=== PATIENT | female | born 1955 | race Caucasian/White ===

== ENCOUNTER 2019-07-09 19:58 | Observation (INO) ==
[2019-07-09] MEDS ORDERED: ALBUT/IPRATROP 3MG/0.5MG NEB 3 ML VIAL INH STA (20:31)
[2019-07-09] MEDS ORDERED: methylPREDNISolone 125 MG/2 ML VIAL IV STA (20:31)
[2019-07-09] MEDS ORDERED: SODIUM CHLORIDE 0.9% 1000ML 1,000 ML IV SCH (20:45)
--- NOTE | 2019-07-09 20:59 | XRay Report ---
XR chest 1V portable CLINICAL HISTORY: Dyspnea dyspnea COMPARISON STUDY: No previous studies for comparison. FINDINGS: Mild cardiac enlargement. Diaphragms are smooth. Mild prominence of the pulmonary vasculatu re. IMPRESSION: Pulmonary vascular congestion. Mild cardiomegaly. ACT 112: Negative or not required by law. The above report was generated using voice recognition software. It may contain grammatical, syntax or spelling errors. Electronically signed by: Trey Leal M.D. 07/09/2019 8:58 PM
[2019-07-09 21:18] LABS: Basophils # (auto) 0.02 K/uL (0-0.2); Basophils % (auto) 0.3 %; Eosinophils # (auto) 0.14 K/uL (0-0.5); Eosinophils % (auto) 2.2 %; Hematocrit (blood only) 43.7 % (37-47); Hemoglobin 15.2 g/dL (12.0-16.0); Lymphocytes # (auto) 2.91 K/uL (1.2-3.4); Lymphocytes % (auto) 46.3 %; Mean Corpuscular Hemoglobin 28.3 pg (25-34); Mean Corpuscular Hgb Conc 34.8 g/dL (32-36); Mean Corpuscular Volume 81.4 fL (80-100); Mean Platelet Volume 9.6 fL (7.4-10.4); Monocytes # (auto) 0.43 K/uL (0.11-0.59); Monocytes % (auto) 6.8 %; Neutrophils # (auto) 2.78 K/uL (1.4-6.5); Neutrophils % (auto) 44.4 %; Platelet Count 161 K/uL (130-400); RDW Coefficient of Variation 14.5 % (11.5-14.5); RDW Standard Deviation 42.5 fL (36.4-46.3); Red Blood Count 5.37 M/uL (4.2-5.4); White Blood Count 6.28 K/uL (4.8-10.8)
[2019-07-09 21:30] LABS: INR 0.9 (0.9-1.1); Partial Thromboplastin Ratio 0.9; Partial Thromboplastin Time 23.7 Seconds (21.0-31.0); Prothrombin Time 9.7 Seconds (9.0-12.0)
[2019-07-09 21:38] LABS: Alanine Aminotransferase 40 U/L (12-78); Albumin Level 2.9 gm/dl (3.4-5.0); Aspartate Aminotransferase 18 U/L (15-37); BUN Creatinine Ratio 17.2 (10-20); Blood Urea Nitrogen 19 mg/dl (7-18); Carbon Dioxide 30 mmol/L (21-32); Chloride 103 mmol/L (98-107); Creatinine Clr Calc Pharmacy 49.8 ml/min; Est GFR (African American) 62.8; Est GFR (Non-African American) 54.2; Glucose 294 mg/dl (70-99); Potassium 3.7 mmol/L (3.5-5.1); Sodium 139 mmol/L (136-145)
[2019-07-09 21:43] LABS: Albumin Globulin Ratio 0.7 (0.9-2); Alkaline Phosphatase 77 U/L (45-117); Bilirubin,Total 0.4 mg/dl (0.2-1); Globulin 4.1 gm/dl (2.5-4.0); NT Pro B Type Natriuretic Pept 149 pg/ml (0-900); Troponin I < 0.015 ng/ml (0-0.045)
[2019-07-09 22:04] LABS: Influenza A virus by PCR Neg for Influ A (Neg); Influenza B virus by PCR Neg for Influ B (Neg)
[2019-07-09] MEDS ORDERED: ALBUTEROL 0.083% NEBU SOLN 3 ML VIAL NEB STA (22:09)
--- NOTE | 2019-07-09 22:57 | Emergency Department Note ---
Entered by Susan Chris acting as a scribe for Zach Christensen DO History of Present Illness General Chief complaint: Cough Stated complaint: BRONCHITIS, COUGHING, SOB Source: patient History of Present Illness Onset (ago): week(s) 3 Location: mouth (cough) Pain Consistency: + other (worsening) Maximum Pain Intensity: 0 Relieved By: not by medication (inhaler and nebulizer) Associated symptoms: + cough, + shortness of breath and + other (a runny nose, sore throat, congestion); no fever/chills The patient is a 63 year old F who presents to the Emergency Room with complaints of a worsening cough that started 3 weeks ago. The patient states that her symptoms started with a runny nose, sore throat, coughing and congestion. She notes that she saw her PCP, 3 weeks ago, and was diagnosed with bronchitis. She adds that her PCP started her on doxycycline and prednisone. She notes that she has been swallowing her mucous and adds that she does not know what color her mucous is. She states that she has not been using an inhaler or nebulizer because it has not been providing her relief. She adds that is addition to her other symptoms, she is currently experiencing shortness of breath. She notes that she has chronic leg swelling. She denies that she is currently experiencing a fever. She states that she has a history of COPD and smoking. Home Medications Home Medications Medication Instructions Recorded Confirmed Type Fenofibrate Tab 0 mg PO DAILY 07/09/19 07/09/19 History albuterol sulfate 2.5 mg INHALATION Q4 PRN 07/09/19 07/09/19 History albuterol sulfate [Ventolin HFA] 2 puff INHALATION Q4 PRN 07/09/19 07/09/19 History aspirin [Aspir-81] 81 mg PO DAILY 07/09/19 07/09/19 History atorvastatin 80 mg PO HS 07/09/19 07/09/19 History bupropion HCl [Wellbutrin SR] 150 mg PO DAILY 07/09/19 07/09/19 History cholecalciferol (vitamin D3) 5,000 unit PO DAILY 07/09/19 07/09/19 History [Vitamin D3] citalopram [Celexa] 4 mg PO BID 07/09/19 07/09/19 History clopidogrel [Plavix] 75 mg PO DAILY 07/09/19 07/09/19 History dulaglutide [Trulicity] 1.5 mg SUBCUT WK 07/09/19 07/09/19 History ezetimibe [Zetia] 10 mg PO DAILY 07/09/19 07/09/19 History fluticasone propion-salmeterol 1 inh INHALATION Q12H 07/09/19 07/09/19 History [Advair Diskus] furosemide [Lasix] 20 mg PO DAILY 07/09/19 07/09/19 History gabapentin [Neurontin] 100 mg PO TID 07/09/19 07/09/19 History hydrocodone-acetaminophen [[place]] 2 tab PO Q6H PRN 07/09/19 07/09/19 History insulin aspart U-100 [Novolog 17 unit SUBCUT TIDM 07/09/19 07/09/19 History U-100 Insulin aspart] insulin detemir U-100 [Levemir 40 unit SUBCUT QPM 07/09/19 07/09/19 History FlexTouch U-100 Insuln] insulin detemir U-100 [Levemir 45 unit SUBCUT QAM 07/09/19 07/09/19 History FlexTouch U-100 Insuln] lisinopril 5 mg PO DAILY 07/09/19 07/09/19 History loratadine [Claritin] 10 mg PO DAILY 07/09/19 07/09/19 History magnesium 30 mg PO DAILY 07/09/19 07/09/19 History metformin 500 mg PO BID 07/09/19 07/09/19 History metoprolol succinate [Toprol XL] 50 mg PO DAILY 07/09/19 07/09/19 History nystatin [Nystop] 1 applic TOPICAL BID 07/09/19 07/09/19 History omeprazole 40 mg PO DAILY 07/09/19 07/09/19 History tiotropium bromide [Spiriva with 1 cap INHALATION DAILY 07/09/19 07/09/19 History HandiHaler] trazodone 150 mg PO HS 07/09/19 07/09/19 History Past Med/Surg History Medical History (Updated 07/09/19 @ 22:57 by Zach Christensen DO) COPD (chronic obstructive pulmonary disease) Family History (Updated 07/09/19 @ 22:42 by Susan Chris) Other No significant family history Social History (Updated 07/09/19 @ 22:42 by Susan Chris) Preferred Language: Greek marital status: Current Living Situation: Spouse Feels Safe at Home: Yes Smoking Status: Former smoker Review of Systems See HPI for pertinent positives & negatives. and A total of 10 systems reviewed and were otherwise negative Physical Exam Vital Signs Vital Signs - 24 hr 07/09/19 20:00 07/09/19 20:44 07/09/19 21:00 Temperature 37.0 C Temperature Source Oral Pulse Rate 126 H Pulse Rate [Apical] 104 H Pulse Rhythm [Apical] Respiratory Rate 22 20 Respiratory Effort / Characteristics Non-Labored Spontaneous Non-Labored Spontaneous Respiratory Depth Normal Blood Pressure 205/77 H Blood Pressure [Right Arm] Blood Pressure Mean 119 Blood Pressure Mean [Right Arm] Pulse Oximetry 92 98 91 Oxygen Delivery Method Room Air Nebulizer Room Air Oxygen Flow Rate 8 Sepsis Recent Fever Within 48 Hours No Sepsis New/Unexplained Change in Mental Status No Sepsis Action Taken by Nursing No Action Required 07/09/19 22:10 07/09/19 22:33 Temperature Temperature Source Pulse Rate Pulse Rate [Apical] 119 H 121 H Pulse Rhythm [Apical] Regular Respiratory Rate 18 20 Respiratory Effort / Characteristics Non-Labored Spontaneous Respiratory Depth Normal Blood Pressure Blood Pressure [Right Arm] 135/80 Blood Pressure Mean Blood Pressure Mean [Right Arm] 98 Pulse Oximetry 93 92 Oxygen Delivery Method Room Air Oxygen Flow Rate Sepsis Recent Fever Within 48 Hours Sepsis New/Unexplained Change in Mental Status Sepsis Action Taken by Nursing GENERAL: sitting up in bed, ill appearing, diaphoretic, persistent cough present, moderate respiratory distress EYE EXAM: normal conjunctiva, PERRL and EOM's grossly intact OROPHARYNX: no exudate, no erythema, lips, buccal mucosa, and tongue normal and mucous membranes are moist NECK: supple, no nuchal rigidity, no adenopathy, non-tender LUNGS: Poor air movement with diffuse wheezing bilaterally. Normal chest wall mechanics HEART: no murmurs, S1 normal and S2 normal ABDOMEN: abdomen soft, non-tender, normo-active bowel sounds, no masses, no rebound or guarding. BACK: Back is symmetrical on inspection and there is no deformity, no midline tenderness, no CVA tenderness. SKIN: no rashes and no bruising UPPER EXTREMITIES: upper extremities are grossly normal. LOWER EXTREMITIES: No pitting edema. Calves equal bilateral. NEURO EXAM: Normal sensorium, cranial nerves II-XII grossly intact, normal speech, no gross weakness of arms, no gross weakness of legs. Course Course ED COURSE: Vital signs were reviewed and showed tachycardia. The patients medical record was reviewed The above diagnostic studies were performed and reviewed. ED treatments and interventions as stated above. 2024: The patient was evaluated in room B5. A complete history and physical examination was performed. 2208: I reviewed the patient's case with Dr. Giles Harper, [facility] Hospitalist. He will evaluate the patient for further management. 2212: Upon reevaluation, the patient is her. I discussed my findings with the patient and she understands and agrees with the treatment plan . Based on the patients age, coexisting illnesses, exam and lab findings the de cision to treat as an inpatient was made. The patient remained stable while under my care. The patient will be evaluated for further management. Administered Medications Discontinued Medications Albuterol (Duoneb) 12 ml INH ONE STA Stop: 07/09/19 20:32 Last Admin: 07/09/19 20:43 Dose: 12 ml Documented by: [id number] Albuterol (Ventolin 0.083% 2.5mg/3ml) 10 mg NEB NOW STA Stop: 07/09/19 22:10 Last Admin: 07/09/19 22:33 Dose: 10 mg Documented by: [id number] Sodium Chloride (Nss 1000ml) 1,000 mls @ 999 mls/hr IV .Q1H1M ADELITA Stop: 07/09/19 21:45 Last Infusion: 07/09/19 22:27 Dose: 0 mls/hr Documented by: [id number] Admin: 07/09/19 21:21 Dose: 999 mls/hr Documented by: [id number] Methylprednisolone (Solumedrol) 60 mg IV NOW STA Stop: 07/09/19 20:32 Last Admin: 07/09/19 21:21 Dose: 60 mg Documented by: [id number] Critical Care Time Critical Care Time: Yes Total Critical Care Time: 35 I have personally spent 35 minutes of critical care time in the direct management of this patient. This includes bedside care, interpretation of diagnostic studies, and testing, discussion with consultants, patient, and family members, and other required patient management activities. This 35 minutes is in excess of all separately billable procedures. Medical Decision Making Differential Diagnosis Differential diagnoses includes but is not limited to pneumonia, bronchitis, COPD/Asthma exacerbation, pneumothorax, pulmonary embolism, congestive heart failure, acute coronary syndrome Medical Records Attestation: I reviewed the patient's medical records. Home Medications Current Medication List: was personally reviewed by me Laboratory Data Attestation: I reviewed the patient's lab results. Result diagrams: 07/09/19 21:08 07/09/19 21:08 Lab Results 07/09/19 07/09/19 07/09/19 Range/Units 21:08 21:08 21:08 WBC 6.28 (4.8-10.8) K/uL RBC 5.37 (4.2-5.4) M/uL Hgb 15.2 (12.0-16.0) g/dL Hct 43.7 (37-47) % MCV 81.4 (80-100) fL MCH 28.3 (25-34) pg MCHC 34.8 (32-36) g/dL RDW Std Deviation 42.5 (36.4-46.3) fL RDW Coeff of Carole 14.5 (11.5-14.5) % Plt Count 161 (130-400) K/uL MPV 9.6 (7.4-10.4) fL Immature Gran % (Auto) 0.0 % Neut % (Auto) 44.4 % Lymph % (Auto) 46.3 % [place] % (Auto) 6.8 % Eos % (Auto) 2.2 % Baso % (Auto) 0.3 % Immature Gran # (Auto) 0.00 (0.00-0.02) K/uL Neut # (Auto) 2.78 (1.4-6.5) K/uL Lymph # (Auto) 2.91 (1.2-3.4) K/uL [place] # (Auto) 0.43 (0.11-0.59) K/uL Eos # (Auto) 0.14 (0-0.5) K/uL Baso # (Auto) 0.02 (0-0.2) K/uL PT 9.7 (9.0-12.0) Seconds INR 0.9 (0.9-1.1) APTT 23.7 (21.0-31.0) Seconds PTT Ratio 0.9 Sodium 139 (136-145) mmol/L Potassium 3.7 (3.5-5.1) mmol/L Chloride 103 (98-107) mmol/L Carbon Dioxide 30 (21-32) mmol/L Anion Gap 6.0 (3-11) BUN 19 H (7-18) mg/dl Creatinine 1.08 (0.6-1.2) mg/dl Est Cr Clr Drug Dosing 49.8 ml/min Est GFR ( Amer) 62.8 Est GFR (Non-Af Amer) 54.2 BUN/Creatinine Ratio 17.2 (10-20) Glucose 294 H (70-99) mg/dl Calcium 9.0 (8.5-10.1) mg/dl Total Bilirubin 0.4 (0.2-1) mg/dl AST 18 (15-37) U/L ALT 40 (12-78) U/L Alkaline Phosphatase 77 (45-117) U/L Troponin I < 0.015 (0-0.045) ng/ml NT-Pro-B Natriuret Pep 149 (0-900) pg/ml Total Protein 7.0 (6.4-8.2) gm/dl Albumin 2.9 L (3.4-5.0) gm/dl Globulin 4.1 H (2.5-4.0) gm/dl Albumin/Globulin Ratio 0.7 L (0.9-2) Influenza Type A (PCR) (Neg) Influenza Type B (PCR) (Neg) 07/09/19 Range/Units 21:08 WBC (4.8-10.8) K/uL RBC (4.2-5.4) M/uL Hgb (12.0-16.0) g/dL Hct (37-47) % MCV (80-100) fL MCH (25-34) pg MCHC (32-36) g/dL RDW Std Deviation (36.4-46.3) fL RDW Coeff of Carole (11.5-14.5) % Plt Count (130-400) K/uL MPV (7.4-10.4) fL Immature Gran % (Auto) % Neut % (Auto) % Lymph % (Auto) % [place] % (Auto) % Eos % (Auto) % Baso % (Auto) % Immature Gran # (Auto) (0.00-0.02) K/uL Neut # (Auto) (1.4-6.5) K/uL Lymph # (Auto) (1.2-3.4) K/uL [place] # (Auto) (0.11-0.59) K/uL Eos # (Auto) (0-0.5) K/uL Baso # (Auto) (0-0.2) K/uL PT (9.0-12.0) Seconds INR (0.9-1.1) APTT (21.0-31.0) Seconds PTT Ratio Sodium (136-145) mmol/L Potassium (3.5-5.1) mmol/L Chloride (98-107) mmol/L Carbon Dioxide (21-32) mmol/L Anion Gap (3-11) BUN (7-18) mg/dl Creatinine (0.6-1.2) mg/dl Est Cr Clr Drug Dosing ml/min Est GFR ( Amer) Est GFR (Non-Af Amer) BUN/Creatinine Ratio (10-20) Glucose (70-99) mg/dl Calcium (8.5-10.1) mg/dl Total Bilirubin (0.2-1) mg/dl AST (15-37) U/L ALT (12-78) U/L Alkaline Phosphatase (45-117) U/L Troponin I (0-0.045) ng/ml NT-Pro-B Natriuret Pep (0-900) pg/ml Total Protein (6.4-8.2) gm/dl Albumin (3.4-5.0) gm/dl Globulin (2.5-4.0) gm/dl Albumin/Globulin Ratio (0.9-2) Influenza Type A (PCR) Neg for Influ A (Neg) Influenza Type B (PCR) Neg for Influ B (Neg) Imaging Data Radiologist's Impression: Radiology results as stated below per my review and the radiologist's interpretation: XR chest 1V portable CLINICAL HISTORY: Dyspnea dyspnea COMPARISON STUDY: No previous studies for comparison. FINDINGS: Mild cardiac enlargement. Diaphragms are smooth. Mild prominence of the pulmonary vasculature. IMPRESSION: Pulmonary vascular congestion. Mild cardiomegaly. ACT 112: Negative or not required by law. The above report was generated using voice recognition software. It may contain grammatical, syntax or spelling errors. Electronically signed by: Trey Leal M.D. 07/09/2019 8:58 PM ECG Data Attestation: I personally reviewed and interpreted this ECG as follows: Indication: + SOB/dyspnea Rate (beats per minute): 112 Rhythm: + sinus tachycardia ECG [place]: + Normal ECG Findings: + Other (T-wave flattening inferiorly, septal q waves); no PVCs Blood Pressure Blood Pressure Findings: Elevated blood pressure Blood Pressure Disposition: further management by hospitalist KIM Narrative Patient is a 63-year-old female with a past medical history of COPD who is a current smoker the presents the ER for shortness of breath associate with cough congestion which is been present for the past 3 weeks and gradually worsening. Seen by PCP placed on steroids and doxycycline with no improvement. IV was established blood work was obtained. Labs show no significant leukocytosis or anemia. BMP with a slightly elevated glucose at 300. LFTs bilirubin troponin was negative. Influenza was negative. Chest x-ray without any focal inf iltrate. EKG was nondiagnostic. Patient was given IV fluids, steroids and an hour neb treatment. Following this she was moving slightly more air. Pulse ox initially was 90% at rest. She was given additional hour-long neb treatment. She was still fairly tachypneic and dyspneic and had a significant amount of wheezing. She was updated bedside discussed with her family. She was discussed with the hospitalist for observation secondary to a COPD exacerbation and a bronchitis. I did not start antibiotics as she had previously been on doxycycline with no improvement. Impression & Plan COPD exacerbation, Bronchitis, Blood glucose elevated Discharge Plan Visit Data Chief Complaint: Cough Stated Complaint: BRONCHITIS, COUGHING, SOB ED Provider: Zach Christensen Discharge Problem: COPD exacerbation, Bronchitis, Blood glucose elevated Patient Disposition: Admitted As Inpatient Forms Stand Alone Forms: My [facility] Prescriptions Prescriptions: No Action metformin 500 mg Tablet 500 mg PO BID RF: 0 bupropion HCl [Wellbutrin SR] 150 mg Tablet Sustained-Release 12 Hr 150 mg PO DAILY RF: 0 fluticasone propion-salmeterol [Advair Diskus] 250-50 mcg/dose Blister With Device 1 inh INHALATION Q12H RF: 0 atorvastatin 80 mg Tablet 80 mg PO HS RF: 0 albuterol sulfate 2.5 mg /3 mL (0.083 %) Solution For Nebulization 2.5 mg INHALATION Q4 PRN (Reason: Shortness Of Breath Or Wheezing) RF: 0 citalopram [Celexa] 40 mg Tablet 4 mg PO BID RF: 0 metoprolol succinate [Toprol XL] 50 mg Tablet Extended Release 24 Hr 50 mg PO DAILY RF: 0 hydrocodone-acetaminophen [[place]] 5-325 mg Tablet 2 tab PO Q6H PRN (Reason: Pain) RF: 0 clopidogrel [Plavix] 75 mg Tablet 75 mg PO DAILY RF: 0 omeprazole 40 mg Capsule,Delayed Release(Dr/Ec) 40 mg PO DAILY RF: 0 aspirin [Aspir-81] 81 mg Tablet,Delayed Release (Dr/Ec) 81 mg PO DAILY RF: 0 insulin aspart U-100 [Novolog U-100 Insulin aspart] 100 unit/mL Solution 17 unit SUBCUT TIDM RF: 0 trazodone 150 mg Tablet 150 mg PO HS RF: 0 lisinopril 5 mg Tablet 5 mg PO DAILY RF: 0 furosemide [Lasix] 20 mg Tablet 20 mg PO DAILY RF: 0 gabapentin [Neurontin] 100 mg Capsule 100 mg PO TID RF: 0 nystatin [Nystop] 100,000 unit/gram Powder 1 applic TOPICAL BID RF: 0 albuterol sulfate [Ventolin HFA] 90 mcg/actuation Hfa Aerosol Inhaler 2 puff INHALATION Q4 PRN (Reason: Shortness Of Breath Or Wheezing) RF: 0 magnesium 30 mg Tablet 30 mg PO DAILY RF: 0 loratadine [Claritin] 10 mg Tablet 10 mg PO DAILY RF: 0 ezetimibe [Zetia] 10 mg Tablet 10 mg PO DAILY RF: 0 Spiriva with HandiHaler 18 mcg Capsule, W/Inhalation Device 1 cap INHALATION DAILY RF: 0 Levemir FlexTouch U-100 Insuln 100 unit/mL (3 mL) Insulin Pen 40 unit SUBCUT QPM RF: 0 Levemir FlexTouch U-100 Insuln 100 unit/mL (3 mL) Insulin Pen 45 unit SUBCUT QAM RF: 0 cholecalciferol (vitamin D3) [Vitamin D3] 125 mcg (5,000 unit) Tablet 5,000 unit PO DAILY RF: 0 Trulicity 1.5 mg/0.5 mL Pen Injector 1.5 mg SUBCUT WK RF: 0 Fenofibrate Tab 0 mg PO DAILY RF: 0 Referrals Referrals: Melissa,Jose, DO [Primary Care Provider] - The scribe's documentation has been prepared under my direction and personally reviewed by me in its entirety. I confirm that the note above accurately reflects all work, treatment, procedures, and medical decision making performed by me.
[2019-07-10] MEDS ORDERED: ONDANSETRON INJ 2 MG/ML 2 ML VIAL IV PRN (00:47)
[2019-07-10] MEDS ORDERED: NITROGLYCERIN SL 0.4 MG/TAB TAB SL PRN (00:47)
[2019-07-10] MEDS ORDERED: ALBUTEROL HFA 8 GM INHALER INH PRN (00:47)
[2019-07-10] MEDS ORDERED: LEVALBUTEROL 1.25MG/0.5ML NEB INH PRN (00:47)
[2019-07-10] MEDS ORDERED: FUROSEMIDE 40 MG/4 ML VIAL IV STA (00:47)
[2019-07-10] MEDS ORDERED: POLYETHYLENE (MIRALAX) 17 GM PACK PO PRN (00:47)
[2019-07-10] MEDS ORDERED: ACETAMINOPHEN 325 MG TAB PO PRN (00:47)
[2019-07-10] MEDS ORDERED: IPRATROPIUM BROMIDE NEB SOLN 0.02% 2.5 ML VIAL INH PRN (00:47)
[2019-07-10] MEDS ORDERED: ERGOCALCIFEROL 50,000 UNITS CAP PO SCH (00:47)
[2019-07-10] MEDS ORDERED: XOPENEX/ATROVENT 1.25mg/0.5MG NEB COMBO NEB PRN (00:47)
[2019-07-10] MEDS ORDERED: XOPENEX/ATROVENT 1.25mg/0.5MG NEB COMBO NEB SCH (01:00)
[2019-07-10] MEDS ORDERED: HYDROCODONE/ACETAMOPHEN 5/325MG TAB PO PRN (01:08)
[2019-07-10] MEDS ORDERED: MECLIZINE HCL 25 MG TAB PO PRN (01:12)
[2019-07-10] MEDS: IPRATROPIUM BROMIDE NEB SOLN 0.02% 2.5 ML VIAL INH SCH ×2 (01:35→07:06)
[2019-07-10] MEDS: LEVALBUTEROL 1.25MG/0.5ML NEB INH SCH ×2 (01:35→07:06)
[2019-07-10] MEDS ORDERED: PHARMACY GLYCEMIC MGMT CONSULT PRN (01:52)
[2019-07-10] MEDS ORDERED: INSULIN HUMAN REGULAR PER UNIT 9 UNITS in SYRINGE 8.91 ML IV ONE (02:00)
[2019-07-10] MEDS ORDERED: INSULIN DETEMIR FLEXPEN/FLEX TOUCH 100 UNITS/ML 3ML SQ ONE (02:00)
[2019-07-10] MEDS ORDERED: INSULIN ASPART 100 UNITS/ML 3 ML PEN SC ONE (02:00)
[2019-07-10 03:33] LABS: Appearance Urine Clear (Clear); Bacteria Urine Automated Negative (Negative); Bilirubin Urine Negative (Negative); Blood Urine Trace (Negative); Color Urine Yellow; Epithelial Cell Urine Auto 20-30 /lpf (0-5); Glucose Urine UA 3+ (Negative); Ketones Urine Negative (Negative); Leukocyte Esterase Urine Negative (Negative); Nitrite Urine Negative (Negative); Protein Urine 2+ (Negative); RBC Urine Automated 0-4 /hpf (0-4); Specific Gravity Urine 1.021 (1.000-1.030); Urobilinogen Urine Negative (Negative)
--- NOTE | 2019-07-10 04:04 | History and Physical Report ---
DATE OF ADMISSION: 07/09/2019 CHIEF COMPLAINT: Shortness of breath and cough. HISTORY OF PRESENT ILLNESS: This is a 63-year-old female with past medical history significant for CAD status post CABG, status post stent, diastolic heart failure, hyperlipidemia, diabetes, sleep apnea, obesity, tobacco use disorder, peripheral artery disease, status post right femoral endarterectomy with pericardial patch angioplasty and bilateral iliac stent placement and aortogram with bilateral lower extremity angiography for bilateral iliac and femoral artery occlusive disease and bilateral infrainguinal occlusive disease with critical limb ischemia on 02/20/2019 in [place], who presents with shortness of breath and cough. The patient says that she is having symptoms for the last 2 weeks, initially treated with prednisone and doxycycline by her primary doctor. Symptom improved again and symptoms came back one week ago and she is on different kind of antibiotics, she does not remember. She is coughing sputum, but she does not look at the sputum, and so does not know the color of the sputum. Denies any fever, chills, getting more progressively short of breath. She is not able to walk uphill or climb stairs, but on level floor she is walking okay. She walks without any support at home, but when she goes to park, she uses a scooter. She lives with her brother and [id number]. When her symptoms were not getting better, she came to the ER. She was 90% on room air. She was on neb treatments and has improved to 92%. Denies any chest pain. No nausea, no vomiting, no abdominal pain. Appetite is okay. No diarrhea or constipation. No blood in stool or black stools. Whenever she is coughing, she is having urinary incontinence but denies any hematuria. Denies any headache. She always has some chronic ear issues. No blurred vision. No sore throat, no difficulty swallowing. No odynophagia. Has chronic lower extremities mild pedal edema, and also mild erythematous changes. Currently resting comfortably and hemodynamically stable. ALLERGIES: No known drug allergies. PAST MEDICAL HISTORY: As mentioned above. PAST SURGICAL HISTORY: Lump removed from the right breast, CABG, cardiac catheterization, , multiple cardiac catheterizations, coronary artery dilatation with RCA stenting, cystourethroscopy with urethral stricture treatment, lithotripsy, cystoscopy with insertion of ureteral stent again, drainage of rectal abscess, common femoral endarterectomy, bilateral iliac artery revascularization stent and angioplasty, robotic laparoscopic pyeloplasty on left side, removal of tonsils, total abdominal hysterectomy with removal of the tubes. MEDICATIONS: The patient is on albuterol 2 puffs every 4 hours p.r.n., Praluent 75 mg subcutaneous q. 14 days, ascorbic acid 500 mg p.o. daily, aspirin 81 mg p.o. daily, atorvastatin 80 mg p.o. at bedtime, Wellbutrin 300 mg p.o. daily, vitamin D 1000 units p.o. daily, Celexa 40 mg p.o. b.i.d., Plavix 75 mg p.o. daily, Trulicity 1.5 mg subcutaneous weekly, Jardiance 10 mg p.o. daily, vitamin D 1250 mcg p.o. weekly, Zetia 10 mg p.o. daily, fenofibrate 145 mg p.o. daily, Advair Diskus one inhalation b.i.d., Lasix 20 mg p.o. daily, gabapentin 300 mg p.o. t.i.d.,hydrocodone/ acetaminophen 10 mg p.o. q. 6 hours p.r.n., NovoLog insulin 17 units subcutaneous t.i.d. with meals, Levemir 47 units in a.m., 40 units in p.m., lisinopril 5 mg p.o. daily, Claritin 10 mg p.o. daily, magnesium oxide 400 mg p.o. daily, meclizine 10 mg p.o. t.i.d. p.r.n., metformin 500 mg p.o. b.i.d., Toprol-XL 50 mg p.o. daily, nystatin topical b.i.d., omeprazole 40 mg p.o. daily, trazodone 150 mg p.o. at bedtime, Ellipta 1 inhalation daily, vitamin A 10,000 units p.o. daily. FAMILY HISTORY: Significant for father had CABG, diabetes, valve surgery, [place], hypertension. Mother has diabetes, heart attack with sudden at age of 54, hyperlipidemia. Paternal grandmother had cancer. Aunt has cancer. SOCIAL HISTORY: , lives with her son and [id number]. Former smoker, quit in January 2019. Smoked half pack to 3/4 pack a day, started at age of 14. Smoked for 49 years. No alcohol use, no drug use. REVIEW OF SYSTEMS: As per HPI. Rest of review of systems negative. PHYSICAL EXAMINATION: GENERAL: The patient is of moderate build, not in acute distress. VITAL SIGNS: Temperature 37, pulse 120s, respiratory rate 20, blood pressure 135/80, oxygen 92% on room air. HEENT: No pallor, no icterus. Pupils equal, round, reactive to light. NECK: No JVD, no neck masses, no carotid bruits. CARDIOVASCULAR: S1, S2 heard. Tachycardia. No murmurs. RESPIRATORY SYSTEM: Normal AP diameter. No accessory muscle use. Bilateral rhonchi heard. ABDOMEN: Soft, bowel sounds present, nontender. No distention. CENTRAL NERVOUS SYSTEM: Cranial nerves II-XII grossly intact, nonfocal. EXTREMITIES: Bilateral lower extremity mild pedal edema present. Mild erythematous changes. LABORATORY DATA: WBC 6.2, hemoglobin 15.2, hematocrit 43.7, platelets 161. PT 9.7, INR 0.9, APTT 23.7. Sodium 139, potassium 3.7, chloride 103, CO2 of 30, BUN 19, creatinine 1.09, serum glucose 294, calcium 9, total bilirubin 0.4, AST 18, ALT 40, alkaline phosphatase 77. Troponin I less than 0.015. BNP 149. Influenza A and B PCR negative. IMAGING DATA: Chest x-ray, mild vascular congestion. EKG: Sinus tachycardia at a rate of 112. No acute ST changes seen. ASSESSMENT AND PLAN: This is a 63-year-old female who presents with chronic obstructive pulmonary disease exacerbation. 1. Shortness of breath, chronic obstructive pulmonary disease exacerbation, failed outpatient treatment. No signs of any infection, was treated with doxycycline as outpatient. We will place her on IV Solu-Medrol 40 t.i.d., nebs around the clock and p.r.n. Continue home inhalers. Closely monitor in the tele floor. 2. History of sleep apnea. Continue CPAP at bedtime. 3. History of coronary artery disease status post coronary artery bypass graft, status post stent. Continue home medication of aspirin, statin, beta hilaria, and Plavix, currently stable. 4. History of diabetes. Hold patients's Jardiance and Trulicity and hold metformin. Continue Levemir. Placed on insulin sliding scale. Monitor blood sugar closely while the patient is on IV steroids and follow HbA1c levels. Follow the blood sugars. 5. History of depression and anxiety. Continue Wellbutrin, Celexa. 6. Chronic diastolic congestive heart failure. Continue home dose of Lasix. We will give one dose of iv 20mg Lasix as chest x-ray shows some congestion and monitor.. 7. Hypertension. Continue her lisinopril, Toprol-XL and diuretics. We will monitor the blood pressure. 8. Peripheral vascular disease. Recently in January she had bilateral iliac and femoral artery disease and bilateral infrainguinal occlusive disease with critical limb ischemia on 02/20/2019, status post right femoral endarterectomy with pericardial patch angioplasty, bilateral iliac stent placement, and aortogram with bilateral lower extremity angiography. Doing okay. Follow with Vascular Surgery, on aspirin, Plavix, and statin. 9. Deep venous thrombosis prophylaxis, heparin subQ. DISPOSITION: Closely monitor in the tele floor. Level 1 full code. PT and OT prior to discharge. Social service to help with discharge planning. MADDY
[2019-07-10] MEDS ORDERED: INSULIN PROTOCOL GOAL RANGE ONE (05:18)
[2019-07-10] MEDS ORDERED: MODERATE STRESS LEVEL ONE (05:18)
[2019-07-10] MEDS ORDERED: DEXTROSE 50% 50 ML SYRINGE IV PRN (05:30)
[2019-07-10] MEDS ORDERED: GLUCOSE 40% GEL 15 GM TUBE PO PRN (05:30)
[2019-07-10] MEDS ORDERED: GLUCOSE 10 TABS/TUBE PO PRN (05:30)
[2019-07-10] MEDS ORDERED: GLUCAGON FOR INJ 1 MG VIAL IM PRN (05:30)
[2019-07-10] MEDS ORDERED: CARBOHYDRATES FOR HYPOGLYCEMIA PO PRN (05:30)
[2019-07-10] MEDS ORDERED: INSULIN REGULAR 250 UNITS in SODIUM CHLORIDE 0.9% 247.5 ML IV SCH (05:45)
[2019-07-10] MEDS ORDERED: INSULIN HUMAN REGULAR IV BOLUS 2 UNITS in SYRINGE 0 ML IV ONE (05:45)
[2019-07-10] MEDS: HEPARIN SOD 5,000 UNIT/0.5 ML VIAL SQ SCH ×3 (05:57→20:42)
[2019-07-10] MEDS ORDERED: methylPREDNISolone 40 MG in SYRINGE 0 ML IV SCH (06:00)
[2019-07-10 06:03] LABS: Basophils # (auto) 0.01 K/uL (0-0.2); Basophils % (auto) 0.1 %; Eosinophils # (auto) 0.02 K/uL (0-0.5); Eosinophils % (auto) 0.3 %; Hematocrit (blood only) 41.6 % (37-47); Hemoglobin 14.1 g/dL (12.0-16.0); Immature Granulocytes # (auto) 0.02 K/uL (0.00-0.02); Immature Granulocytes % (auto) 0.3 %; Lymphocytes # (auto) 0.77 K/uL (1.2-3.4); Lymphocytes % (auto) 11.1 %; Mean Corpuscular Hemoglobin 28.1 pg (25-34); Mean Corpuscular Hgb Conc 33.9 g/dL (32-36); Mean Corpuscular Volume 82.9 fL (80-100); Mean Platelet Volume 10.1 fL (7.4-10.4); Monocytes # (auto) 0.19 K/uL (0.11-0.59); Monocytes % (auto) 2.7 %; Neutrophils # (auto) 5.91 K/uL (1.4-6.5); Neutrophils % (auto) 85.5 %; Platelet Count 173 K/uL (130-400); RDW Coefficient of Variation 14.6 % (11.5-14.5); RDW Standard Deviation 43.8 fL (36.4-46.3); Red Blood Count 5.02 M/uL (4.2-5.4); White Blood Count 6.92 K/uL (4.8-10.8)
[2019-07-10 06:39] LABS: Estimated Average Glucose 295 mg/dl; Hemoglobin A1C 11.9 % (4.5-5.6)
[2019-07-10 06:54] LABS: BUN Creatinine Ratio 12.9 (10-20); Calcium 9.1 mg/dl (8.5-10.1); Creatinine Clr Calc Pharmacy 38.3 ml/min; Est GFR (African American) 44.7; Est GFR (Non-African American) 38.6; Magnesium 1.4 mg/dl (1.8-2.4); Potassium 3.7 mmol/L (3.5-5.1)
[2019-07-10 07:12] LABS: Beta-Hydroxybutyrate 3.38 mg/dl (0.2-2.81)
[2019-07-10] MEDS ORDERED: SODIUM CHLORIDE 0.9% 1000ML 250 ML IV ONE (07:25)
[2019-07-10] MEDS ORDERED: INSULIN ASPART 100 UNITS/ML 3 ML PEN SC SCH (07:30)
[2019-07-10] MEDS: MAGNESIUM SULFATE / D5W 1 GM/100 ML BAG IV SCH ×2 (07:43→08:37)
[2019-07-10] MEDS ORDERED: PNEUMOCOCCAL Polysaccharide Vaccine 25mcg/0.5mL vial/Syr IM ONE (08:00)
[2019-07-10] MEDS ORDERED: POTASSIUM CHLORIDE 10 MEQ in SODIUM CHLORIDE 0.9% 1000ML 1,000 ML IV SCH (08:30)
[2019-07-10] MEDS: CLOPIDOGREL BISULFATE 75 MG TAB PO SCH (08:38)
[2019-07-10] MEDS: CITALOPRAM 40 MG TAB PO SCH ×2 (08:39→20:42)
[2019-07-10] MEDS: ASCORBIC ACID 500 MG TAB PO SCH (08:39)
[2019-07-10] MEDS: BuPROPion XL 300 MG TABCR PO SCH (08:39)
[2019-07-10] MEDS: NYSTATIN POWDER 15GM BTL EXT SCH ×2 (08:39→20:44)
[2019-07-10] MEDS: EZETIMIBE 10 MG TABLET PO SCH (08:39)
[2019-07-10] MEDS: GABAPENTIN 300 MG CAP PO SCH ×3 (08:39→20:47)
[2019-07-10] MEDS: FUROSEMIDE 20 MG TAB PO SCH (08:39)
[2019-07-10] MEDS: CHOLECALCIFEROL 1,000 UNITS TAB PO SCH (08:40)
[2019-07-10] MEDS: MAGNESIUM OXIDE 400 MG TAB PO SCH (08:40)
[2019-07-10] MEDS: FENOFIBRATE NANOCRYSTALLIZED 145 MG TABLET PO SCH (08:40)
[2019-07-10] MEDS: PANTOprazole 40 MG TAB PO SCH (08:40)
[2019-07-10] MEDS: BuPROPion XL 150 MG TABCR PO SCH (08:40)
[2019-07-10] MEDS: ASPIRIN 81 MG ECTAB PO SCH (08:40)
[2019-07-10] MEDS: LORATADINE 10 MG TAB PO SCH (08:41)
[2019-07-10] MEDS: FLUTICASONE/SALMETEROL 250/50 (ADVAIR) 14 PUFF/1 INHALER INH SCH ×2 (08:41→20:40)
[2019-07-10] MEDS: TIOTROPIUM BROMIDE 5 PUFF/90 MCG INH INH SCH (08:41)
[2019-07-10] MEDS: lisinopriL 5 MG TAB PO SCH (08:46)
[2019-07-10] MEDS: METOPROLOL SUCC 50MG EXT REL TAB PO SCH (08:46)
[2019-07-10] MEDS ORDERED: UMECLIDINIUM VILANTEROL INH SCH (09:00)
[2019-07-10] MEDS ORDERED: INSULIN DETEMIR FLEXPEN/FLEX TOUCH 100 UNITS/ML 3ML SQ SCH ×2 (09:00→21:00)
[2019-07-10] MEDS ORDERED: VITAMIN A 10000 UNIT PO SCH (09:00)
[2019-07-10] MEDS: INSULIN ASPART 100 UNITS/ML 3 ML PEN SC SCH ×4 (09:01→20:50)
[2019-07-10 10:34] LABS: Albumin Globulin Ratio 0.8 (0.9-2); Albumin Level 2.8 gm/dl (3.4-5.0); BUN Creatinine Ratio 12.8 (10-20); Beta-Hydroxybutyrate 1.57 mg/dl (0.2-2.81); Bilirubin,Total 0.2 mg/dl (0.2-1); Calcium 9.1 mg/dl (8.5-10.1); Creatinine Clr Calc Pharmacy 37.7 ml/min; Globulin 3.7 gm/dl (2.5-4.0); Magnesium 2.3 mg/dl (1.8-2.4); Potassium 3.9 mmol/L (3.5-5.1); Total Protein 6.5 gm/dl (6.4-8.2)
--- NOTE | 2019-07-10 10:35 | Electrocardiogram Report ---
Test Reason : Blood Pressure : / mmHG Vent. Rate : 112 BPM Atrial Rate : 112 BPM P-R Int : 138 ms QRS Dur : 076 ms QT Int : 316 ms P-R-T Axes : 063 047 068 degrees QTc Int : 431 ms Sinus tachycardia Low voltage QRS Cannot rule out Anterior infarct , age undetermined Abnormal ECG No previous ECGs available Confirmed by Sushant Reilly ([id number]) on 07/10/2019 10:35:34 AM Referred By: REFERRED SELF Confirmed By:Sushant Reilly
[2019-07-10] MEDS ORDERED: SODIUM CHLORIDE 0.9% 1000ML 500 ML IV ONE (10:37)
[2019-07-10 11:44] LABS: Albumin Globulin Ratio 0.7 (0.9-2); Albumin Level 2.6 gm/dl (3.4-5.0); BUN Creatinine Ratio 12.1 (10-20); Bilirubin,Total 0.3 mg/dl (0.2-1); C Reactive Protein 1.01 mg/dl (0-0.29); Calcium 8.6 mg/dl (8.5-10.1); Creatinine Clr Calc Pharmacy 39.3 ml/min; Est GFR (African American) 46.3; Globulin 3.6 gm/dl (2.5-4.0); Potassium 3.9 mmol/L (3.5-5.1); Total Protein 6.2 gm/dl (6.4-8.2)
[2019-07-10 11:55] LABS: Beta-Hydroxybutyrate 1.64 mg/dl (0.2-2.81)
[2019-07-10] MEDS ORDERED: PIPERACILL/TAZOBAC CONSULT ACTIVE PRN (12:24)
[2019-07-10] MEDS ORDERED: PIPERACILLIN/TAZOBACTAM 3.375 GM in DEXTROSE 5% 100 ML IV SCH (12:30)
[2019-07-10] MEDS: SODIUM CHLORIDE 0.9% 1000ML 1,000 ML IV SCH ×2 (12:38→16:13)
[2019-07-10] MEDS ORDERED: PIPERACILLIN/TAZOBACTAM 4.5 GM in DEXTROSE 5% 100 ML IV ONE (12:45)
--- NOTE | 2019-07-10 12:48 | Hospitalist Progress Note ---
Date of Service July 10, 2019 Assessment & Plan (1) COPD exacerbation: -This is a 63-year-old female who presents with chronic obstructive pulmonary disease exacerbation with initially presentation not suggesting any signs of infection -admission chest X ray without infiltrates, urine with no bacteria -patient was given nebulizer treatments and dose of IV Solumedrol and doxycycline during initial workup by ED provider/nocturnal hospitalist physician -on re-assessment by day time hospital doctor, patient appears to comfortable and no apparent respiratory distress and breathing on room air. She was noted to have at the time recent blood sugars above 500 and it would appear that the solumedrol triggered hyperglycemia on top of underlying diabetes mellitus. Patient also had sinus tachycardia but did not have chest pain or palpitations Type 2 Diabetes Mellitus with snf current use of insulin with Hyperglycemia Diabetic Ketoacidosis Metabolic Anion gap acidosis Lactic Acidosis SIRs criteria -given that blood sugars went above 500, pharmacy glycemic control was consulted by admitting nocturnalist hospitalist physician -HbA1c resulted as 11.9 and no prior records at patient does not follow with the local medical system in [place] -further IV solumedrol was discontinue by daytime medical doctor. -an anion gap acidosis was noted on comprehensive metabolic panel and initial lactic acid was 9.2 -patient has received multiple IV fluids and lactic acid has downtrended to 5.2 with anion gap of 13 -concurrently because of tachycardia and elevated lactic acid, patient was started on broad spectrum IV antibiotics of Zosyn - however do not suspect that patient as infective bacteremia process at this time -will still continue IV antibiotics with IV fluids and IV insulin at least until acidosis is corrected -patient's home diabetes medications includes metformin and this is not be given at this time in context of lactic acidosis History of sleep apnea -note that recent VBG does not show acute CO2 retention -Continue CPAP at bedtime. Chronic diastolic congestive heart failure. -patient had IV 20 mg Lasix x 1 on admission -Continue home dose of Lasix of 20 mg daily and titrate ip as needed while on IV fluids and IV insulin and IV antibiotics coronary artery disease status and in the past had coronary artery bypass graft and coronary artery stent Hypertension - Continue home medication of aspirin, statin, beta hilaria of metoprolol succinate 50 mg daily , and Plavix, currently stable. Peripheral vascular disease -Recently in January 2020, she had bilateral iliac and femoral artery disease and bilateral infrainguinal occlusive disease with critical limb ischemia on 02/20/2019, status post right femoral endarterectomy with pericardial patch angioplasty, bilateral iliac stent placement, and aortogram with bilateral lower extremity angiography. -Follow with Vascular Surgery as outpatient -on aspirin, Plavix, and statin -no signs of limb ischemia on this admission depression and anxiety -mood stable -Wellbutrin, Celexa. Deep venous thrombosis prophylaxis: heparin sub cut Subjective Patient seen multiple times today because of elevated lactic acid, anion gap metabolic acidosis, hyperglycemia. despite abnormal lab values and with multiple adjustments of IV fluids, patient is not toxic in appearance. she is breathing comfortably on room air, awake and alert and oriented and interacts with medical staff appropriately. has sinus tachycardia. patient denies chest pain or palpitations patient denies abdominal pain. no vomiting. no dizziness. no headache. Physical Exam Constitutional: comfortable Eyes: PERRL, conjunctivae normal, anicteric sclerae EOM intact bilaterally ENMT: external ear and nose normal, oropharynx normal Neck: normal visual inspection Respiratory: normal respiratory effort Cardiovascular: Rate/Rhythm: regular rhythm and + tachycardic Gastrointestinal (Abdomen): normal bowel sounds, soft, nontender, no hepatosplenomegaly Musculoskeletal: no cyanosis or clubbing, extremities motor strength 5/5 Head/Neck/Chest: normocephalic and head atraumatic Neurologic: PERRL, EOMI, accommodation nl, no face palsy, no dysarthria CN's II-XI intact bilaterally Psychiatric: A+Ox3, euthymic affect Results & Data Vital Signs (Past 12 Hours) Vital Signs Temp Pulse Pulse Pulse Resp BP BP 07/10/19 11:32 36.8 C 117 H 20 121/60 07/10/19 08:00 120 H 07/10/19 07:08 82 20 07/10/19 07:00 36.7 C 118 H 20 111/57 L 07/10/19 04:00 36.5 C 127 H 20 146/89 H 07/10/19 01:45 120 H 30 H 07/10/19 01:36 118 H 20 07/10/19 00:49 36.8 C 133 H 16 133/79 Pulse Ox 07/10/19 11:32 93 07/10/19 08:00 07/10/19 07:08 97 07/10/19 07:00 98 07/10/19 04:00 93 07/10/19 01:45 96 07/10/19 01:36 93 07/10/19 00:49 93
[2019-07-10 13:20] LABS: Albumin Globulin Ratio 0.7 (0.9-2); Albumin Level 2.7 gm/dl (3.4-5.0); BUN Creatinine Ratio 12.7 (10-20); Bilirubin,Total 0.3 mg/dl (0.2-1); Calcium 8.7 mg/dl (8.5-10.1); Creatinine Clr Calc Pharmacy 42.1 ml/min; Est GFR (African American) 50.2; Est GFR (Non-African American) 43.3; Globulin 3.7 gm/dl (2.5-4.0); Potassium 3.8 mmol/L (3.5-5.1); Total Protein 6.4 gm/dl (6.4-8.2)
[2019-07-10 13:38] LABS: Beta-Hydroxybutyrate 1.55 mg/dl (0.2-2.81)
[2019-07-10 15:23] LABS: Base Excess VBG 0.3 mEq/L; HCO3 VBG 26 mmol/L; PCO2 VBG 43 mmHg (38-50); PO2 VBG 26 mmHg; pH VBG 7.39 (7.36-7.41)
[2019-07-10 15:26] LABS: Oxygen Saturation VBG < 60.0 %
--- NOTE | 2019-07-10 15:28 | Pharmacy Report ---
Glycemic Control Consultation - Date of Service July 10, 2019 - Scope Scope: Glycemic Pharmacist consulted by Dr Harper on 07/10/2019 for glycemic control and to write orders per [facility] inpatient glycemic control protocol - Objective Weight: 85 kg Accuchecks BSG (last 24hrs): 07/09/19 07/10/19 07/10/19 21:08 01:18 01:20 Glucose 294 H POC Glucose 499 H* 505 H* 07/10/19 07/10/19 07/10/19 05:06 05:07 05:36 Glucose 561 H* POC Glucose 526 H* 528 H* 07/10/19 07/10/19 07/10/19 07:26 08:30 09:27 Glucose POC Glucose 491 H* 481 H* 520 H* 07/10/19 07/10/19 07/10/19 09:41 10:29 11:02 Glucose 474 H* 386 H* POC Glucose 514 H* 07/10/19 07/10/19 07/10/19 11:29 12:29 12:40 Glucose 359 H* POC Glucose 393 H* 356 H* 07/10/19 07/10/19 13:27 14:38 Glucose POC Glucose 353 H* 333 H* Laboratory Data (last 24hrs): 07/09/19 07/10/19 07/10/19 21:08 05:36 09:41 Potassium 3.7 3.7 3.9 Carbon Dioxide 30 24 21 Anion Gap 6.0 12.0 H 17.0 H Creatinine 1.08 1.43 H D 1.45 H Est Cr Clr Drug Dosing 49.8 38.3 37.7 Beta-Hydroxybutyric Acd 3.38 H 1.57 07/10/19 07/10/19 11:02 12:40 Potassium 3.9 3.8 Carbon Dioxide 22 21 Anion Gap 12.0 H 13.0 H Creatinine 1.39 H 1.30 H Est Cr Clr Drug Dosing 39.3 42.1 Beta-Hydroxybutyric Acd 1.64 1.55 HbA1c: Hemoglobin A1c 11.9 % (4.5-5.6) H 07/10/19 05:36 - Recent Pertinent Medications Outpatient Anti-diabetic Regimen: * Metformin 500 mg PO BIDM, Jardiance 10 mg PO daily, Trulicity 1.5 mg SC weekly * Levemir 47 units SC AM, 45 units SC PM, Novolog 17 units TIDM * A1c = 11.9 % (07/10/2019) Risk Factors for Insulin Resistance: * Steroids: Solu-medrol 40 mg IV q8h * Infection: Zosyn - empiric * IVF: NSS@125 mL/hr * Diet:T2DM - Assessment & Plan Assessment & Plan: ASSESSMENT: * MAYI is a 63 year old female who presented to [facility] ED on 07/09/2019 with shortness of breath and cough * Patient's BSGs elevated at 561 mg/dL on admission * Insulin drip initiated this morning at 2.1 unit/hr and has gradually increased to 8.6 unit/hr (current rate) * Patient is ordered Solu-medrol 40 mg IV q8h and is receiving empiric Zosyn 4.5 g IV q8h * Patient with elevated lactate and anion gap, bicarb WNL - awaiting blood gas * Patient breathing comfortably on room air PLAN FOR INPATIENT GLYCEMIC CONTROL: * IV insulin infusion initiated this morning * Goal Range 110 - 180 mg/dl * In the critical care setting, continuous IV insulin infusion has been shown to be the best method for achieving glycemic targets. * Holding outpatient oral diabetes medications * Basal insulin * Lantus 45 units SQ BID * Bolus insulin * NovoLog per scale ACHS or Q6hrs while NPO * Nutritional / Prandial insulin per carb ratio of 1 unit per 3 grams CHO consumed (based on 90 units of basal as an outpatient) * Please note that the plan above was derived based on current level of insulin resistance and hospital stress. These recommendations are appropriate for inpatient admission only. Plan of care upon discharge will need to be reassessed to avoid potential outpatient hypo/hyperglycemia. Thank you.
[2019-07-10 15:47] LABS: Albumin Globulin Ratio 0.8 (0.9-2); Albumin Level 2.8 gm/dl (3.4-5.0); Bilirubin,Total 0.4 mg/dl (0.2-1); Calcium 9.1 mg/dl (8.5-10.1); Creatinine Clr Calc Pharmacy 43.1 ml/min; Est GFR (African American) 51.6; Est GFR (Non-African American) 44.6; Globulin 3.5 gm/dl (2.5-4.0); Potassium 3.9 mmol/L (3.5-5.1); Total Protein 6.3 gm/dl (6.4-8.2)
[2019-07-10 16:12] LABS: Beta-Hydroxybutyrate 1.31 mg/dl (0.2-2.81)
[2019-07-10] MEDS: PIPERACILLIN/TAZOBACTAM 4.5 GM in DEXTROSE 5% 100 ML IV SCH (18:42)
[2019-07-10 20:20] LABS: Albumin Level 2.4 gm/dl (3.4-5.0); BUN Creatinine Ratio 15.4 (10-20); Calcium 8.6 mg/dl (8.5-10.1); Creatinine Clr Calc Pharmacy 46.3 ml/min; Est GFR (African American) 56.4; Est GFR (Non-African American) 48.7; Potassium 3.8 mmol/L (3.5-5.1)
[2019-07-10 20:30] LABS: Albumin Globulin Ratio 0.8 (0.9-2); Bilirubin,Total 0.3 mg/dl (0.2-1); Globulin 3.1 gm/dl (2.5-4.0); Total Protein 5.5 gm/dl (6.4-8.2)
[2019-07-10] MEDS: TRAZODONE HCL 50 MG TAB PO SCH (20:43)
[2019-07-10] MEDS: ATORVASTATIN 40 MG TAB PO SCH (20:43)
[2019-07-10] MEDS: INSULIN DETEMIR FLEXPEN/FLEX TOUCH 100 UNITS/ML 3ML SQ SCH (20:45)
[2019-07-11] MEDS: PIPERACILLIN/TAZOBACTAM 4.5 GM in DEXTROSE 5% 100 ML IV SCH ×2 (02:11→10:21)
[2019-07-11] MEDS: HEPARIN SOD 5,000 UNIT/0.5 ML VIAL SQ SCH ×3 (05:52→21:28)
[2019-07-11] MEDS: GABAPENTIN 300 MG CAP PO SCH ×3 (07:45→20:22)
[2019-07-11] MEDS: LORATADINE 10 MG TAB PO SCH (07:45)
[2019-07-11] MEDS: MAGNESIUM OXIDE 400 MG TAB PO SCH (07:45)
[2019-07-11] MEDS: lisinopriL 5 MG TAB PO SCH (07:45)
[2019-07-11] MEDS: FENOFIBRATE NANOCRYSTALLIZED 145 MG TABLET PO SCH (07:46)
[2019-07-11] MEDS: BuPROPion XL 300 MG TABCR PO SCH (07:46)
[2019-07-11] MEDS: BuPROPion XL 150 MG TABCR PO SCH (07:46)
[2019-07-11] MEDS: ASPIRIN 81 MG ECTAB PO SCH (07:46)
[2019-07-11] MEDS: CHOLECALCIFEROL 1,000 UNITS TAB PO SCH (07:46)
[2019-07-11] MEDS: FLUTICASONE/SALMETEROL 250/50 (ADVAIR) 14 PUFF/1 INHALER INH SCH ×2 (07:46→20:21)
[2019-07-11] MEDS: PANTOprazole 40 MG TAB PO SCH (07:46)
[2019-07-11] MEDS: CITALOPRAM 40 MG TAB PO SCH ×2 (07:46→20:21)
[2019-07-11] MEDS: CLOPIDOGREL BISULFATE 75 MG TAB PO SCH (07:46)
[2019-07-11] MEDS: EZETIMIBE 10 MG TABLET PO SCH (07:46)
[2019-07-11] MEDS: ASCORBIC ACID 500 MG TAB PO SCH (07:47)
[2019-07-11] MEDS: FUROSEMIDE 20 MG TAB PO SCH (07:47)
[2019-07-11] MEDS: INSULIN DETEMIR FLEXPEN/FLEX TOUCH 100 UNITS/ML 3ML SQ SCH ×2 (07:47→21:29)
[2019-07-11] MEDS: METOPROLOL SUCC 50MG EXT REL TAB PO SCH (07:47)
[2019-07-11] MEDS: INSULIN ASPART 100 UNITS/ML 3 ML PEN SC SCH ×4 (07:48→21:28)
[2019-07-11] MEDS: TIOTROPIUM BROMIDE 5 PUFF/90 MCG INH INH SCH (07:49)
--- NOTE | 2019-07-11 09:02 | XRay Report ---
XR chest 2V PA/lateral CLINICAL HISTORY: 63 years-old Female presenting with follow if lung infiltrates. TECHNIQUE: PA and lateral views of the chest were obtained. COMPARISON: 07/09/2019. FINDINGS: Median sternotomy wires, mediastinal surgical clips, and coronary artery bypass graft rings noted. Br eakage of the superior wires as on prior exam. Atherosclerosis of the aortic arch. Cardiac silhouette borderline enlarged. Minimal pulmonary vascular prominence. Minimal basilar opacities. No pleural ef fusion or pneumothorax. Osseous structures normal. Upper abdomen normal. IMPRESSION: 1. Minimal basilar opacities likely atelectasis or scarring. This is similar to prior. 2. Borderline cardiac silhouette with mild if any volume overload. ACT 112: Negative or not required by law. Electronically signed by: Thierno Li M.D. 07/11/2019 9:01 AM
[2019-07-11] MEDS: NYSTATIN POWDER 15GM BTL EXT SCH ×2 (10:07→20:22)
[2019-07-11] MEDS ORDERED: CHLORASEPTIC 1.4% SOLN 180 ML BTL MT PRN (10:14)
[2019-07-11 10:35] LABS: Basophils # (auto) 0.03 K/uL (0-0.2); Basophils % (auto) 0.3 %; Eosinophils # (auto) 0.21 K/uL (0-0.5); Hematocrit (blood only) 39.9 % (37-47); Hemoglobin 13.5 g/dL (12.0-16.0); Immature Granulocytes # (auto) 0.04 K/uL (0.00-0.02); Immature Granulocytes % (auto) 0.4 %; Lymphocytes # (auto) 2.39 K/uL (1.2-3.4); Lymphocytes % (auto) 23.2 %; Mean Corpuscular Hemoglobin 28.3 pg (25-34); Mean Corpuscular Hgb Conc 33.8 g/dL (32-36); Mean Corpuscular Volume 83.6 fL (80-100); Mean Platelet Volume 9.3 fL (7.4-10.4); Monocytes # (auto) 0.86 K/uL (0.11-0.59); Monocytes % (auto) 8.4 %; Neutrophils # (auto) 6.75 K/uL (1.4-6.5); Neutrophils % (auto) 65.7 %; Platelet Count 171 K/uL (130-400); RDW Coefficient of Variation 14.7 % (11.5-14.5); RDW Standard Deviation 45.4 fL (36.4-46.3); Red Blood Count 4.77 M/uL (4.2-5.4); White Blood Count 10.28 K/uL (4.8-10.8)
[2019-07-11 10:59] LABS: BUN Creatinine Ratio 14.3 (10-20); Calcium 8.5 mg/dl (8.5-10.1); Creatinine Clr Calc Pharmacy 45.5 ml/min; Est GFR (African American) 54.8; Est GFR (Non-African American) 47.2
--- NOTE | 2019-07-11 11:43 | Hospitalist Progress Note ---
Date of Service July 11, 2019 Assessment & Plan (1) COPD exacerbation: Clinically improved, off steroids. Zosyn discontinued as no clear identifiable reason to continue this, and she is clinically well. Nebs PRN. Phenol spray PRN throat pain. Poss viral etiology. Otherwise cont supportive care. (2) DKA (diabetic ketoacidoses): Type II DM. Gap closed. Acidosis resolved. Off insulin drip. Cont basal/bolus insulin while hospitalized. Holding metformin per home regimen. Consult diabetic nurse educator to assist with education efforts. Appreciate pharmacy assistance with inpatient insulin adjustments. (3) Bronchitis: Acute symptoms are improved. Plan as above. (4) CAD (coronary artery disease): chronic, stable. Asymptomatic. No events on telemetry overnight. Cont medical management with ASA, Lipitor 80, Plavix, Tricor, Zetia, Lisinopril, Toprol XL. (5) PVD (peripheral vascular disease): cont medical management as above. (6) Chronic diastolic heart failure: Appears euvolemic. Cont home Lasix 20mg PO daily. (7) Depression: Cont home welbutrin, citalopram. (8) DVT prophylaxis: Heparin SQ Full Code Dispo-transfer to floor. Plan for home when medically ready for discharge. Maya Ha DO [facility] Hospitalist Subjective 63 yo F presented with acute bronchitis with worsening SOB and coughing. Had isabel welch seen in the clinic and recovered from initial bronchitis episode after one course of abx, however, she became worse one week later resulting in hospital admission. She was given steroids and went into DKA. Now off the insulin drip and glucose appears controlled on basal/bolus insulin. She is eating and tolerating PO. Reports her breathing is improved almost to baseline. Not requiring supplemental oxygen. denies coughing fevers or chills at this time. Reports severe sore throat that got worse this am. No nasal or upper airway congestion per her report. ROS otherwise negative. Review of Systems Review of Systems: All systems reviewed & are unremarkable except as noted in HPI & below Physical Exam Physical Exam: CONSTITUTIONAL: WNWD, vitals as above, generally well- appearing EYES: normal conjunctivae, no scleral icterus ENT: external ear and nose normal, oropharynx clear, some brownish tint to posterior tonight, no maxillary or ethmoid sinus tenderness NECK: trachea midline RESPIRATORY: clear to auscultation bilaterally, no crackles, rales or wheezes, normal respiratory effort CARDIOVASCULAR: regular rate and rhythm, S1 and 2 heard without murmurs, gallops or rubs, no JVD, no peripheral edema GASTROINTESTINAL: soft, nontender, nondistended MUSCULOSKELETAL: strength 5/5 throughout, head is normocephalic and atraumatic SKIN: warm and dry NEUROLOGIC: CN 2-12 grossly intact, no sensory deficit, normal cognition, normal speech, no gross focal deficits. PSYCHIATRIC: alert cooperative and oriented to person, place and time. Results & Data Vital Signs (Past 12 Hours) Vital Signs Temp Pulse Pulse Resp BP Pulse Ox 07/11/19 11:14 36.6 C 87 19 117/60 92 07/11/19 07:25 36.5 C 62 18 125/66 96 07/11/19 03:55 36.7 C 88 18 100/56 L 92 07/11/19 00:40 96 H Laboratory Results Short CBC 07/11/19 Range/Units 10:24 WBC 10.28 (4.8-10.8) K/uL Hgb 13.5 (12.0-16.0) g/dL Hct 39.9 (37-47) % Plt Count 171 (130-400) K/uL BMP 07/10/19 07/10/19 07/10/19 11:02 12:40 14:43 Sodium 134 L 134 L 135 L Potassium 3.9 3.8 3.9 Chloride 100 100 101 Carbon Dioxide 22 21 22 BUN 17 17 19 H Creatinine 1.39 H 1.30 H 1.27 H Glucose 386 H* 359 H* 330 H* Calcium 8.6 8.7 9.1 07/10/19 07/11/19 19:40 10:24 Sodium 139 138 Potassium 3.8 4.0 Chloride 108 H 104 Carbon Dioxide 27 29 BUN 18 17 Creatinine 1.18 1.21 H Glucose 126 H 157 H Calcium 8.6 8.5 Liver Function 07/10/19 07/10/19 07/10/19 Range/Units 11:02 12:40 14:43 Total Bilirubin 0.3 0.3 0.4 (0.2-1) mg/dl AST 26 29 39 H (15-37) U/L ALT 37 37 39 (12-78) U/L Alkaline Phosphatase 66 66 67 (45-117) U/L Albumin 2.6 L 2.7 L 2.8 L (3.4-5.0) gm/dl 07/10/19 Range/Units 19:40 Total Bilirubin 0.3 (0.2-1) mg/dl AST 41 H (15-37) U/L ALT 35 (12-78) U/L Alkaline Phosphatase 57 (45-117) U/L Albumin 2.4 L (3.4-5.0) gm/dl Medications Administered Current Inpatient Medications Acetaminophen (Tylenol) 650 mg PO Q4H PRN PRN Reason: Pain or Fever Stop: 08/09/19 00:46 Hydrocodone Bitart/Acetaminophen (Clark 5/325) 2 tab PO Q6H PRN PRN Reason: Pain Stop: 07/24/19 01:07 Albuterol (Ventolin Hfa) 2 puffs INH Q4 PRN PRN Reason: Shortness Of Breath Or Wheezing Stop: 08/09/19 00:46 Last Admin: 07/10/19 08:42 Dose: 2 puffs Documented by: Ascorbic Acid (Vitamin C) 500 mg PO DAILY [facility] Stop: 08/09/19 08:59 Last Admin: 07/11/19 07:47 Dose: 500 mg Documented by: Aspirin (Ecotrin Ectab) 81 mg PO DAILY [facility] Stop: 08/09/19 08:59 Last Admin: 07/11/19 07:46 Dose: 81 mg Documented by: Atorvastatin Calcium (Lipitor) 80 mg PO HS [facility] Stop: 08/09/19 20:59 Last Admin: 07/10/19 20:43 Dose: 80 mg Documented by: Bupropion HCl (Wellbutrin-Xl) 150 mg PO DAILY [facility] Stop: 08/09/19 08:59 Last Admin: 07/11/19 07:46 Dose: 150 mg Documented by: Bupropion HCl (Wellbutrin-Xl) 300 mg PO QAM [facility] Stop: 08/09/19 08:59 Last Admin: 07/11/19 07:46 Dose: 300 mg Documented by: Citalopram Hydrobromide (Celexa) 40 mg PO BID [facility] Stop: 08/09/19 08:59 Last Admin: 07/11/19 07:46 Dose: 40 mg Documented by: Clopidogrel Bisulfate (Plavix) 75 mg PO DAILY [facility] Stop: 08/09/19 08:59 Last Admin: 07/11/19 07:46 Dose: 75 mg Documented by: Dextrose (Dextrose 50%) 25 - 50 ml IV UD PRN; Protocol PRN Reason: Hypoglycemia Protocol Stop: 08/09/19 05:29 Ezetimibe (Zetia) 10 mg PO DAILY [facility] Stop: 08/09/19 08:59 Last Admin: 07/11/19 07:46 Dose: 10 mg Documented by: Fenofibrate (Tricor) 145 mg PO DAILY [facility] Stop: 08/09/19 08:59 Last Admin: 07/11/19 07:46 Dose: 145 mg Documented by: Furosemide (Lasix) 20 mg PO DAILY [facility] Stop: 08/09/19 08:59 Last Admin: 07/11/19 07:47 Dose: 20 mg Documented by: Gabapentin (Neurontin) 300 mg PO TID [facility] Stop: 08/09/19 08:59 Last Admin: 07/11/19 07:45 Dose: 300 mg Documented by: Glucagon (Glucagen) 1 mg IM UD PRN; Protocol PRN Reason: Hypoglycemia Protocol Stop: 08/09/19 05:29 Glucose (Glucose 40%) 15 - 30 gm PO UD PRN; Protocol PRN Reason: Hypoglycemia Protocol Stop: 08/09/19 05:29 Glucose (Dex4 Glucose) 4 - 8 tabs PO UD PRN; Protocol PRN Reason: Hypoglycemia Protocol Stop: 08/09/19 05:29 Heparin Sodium (Porcine) (Heparin Sodium (Porcine)) 5,000 units SQ Q8 [facility] Stop: 08/09/19 05:59 Last Admin: 07/11/19 05:52 Dose: 5,000 units Documented by: Insulin Aspart (Novolog Flexpen) 0 units SC ACHS [facility] Stop: 08/10/19 07:29 Last Admin: 07/11/19 07:48 Dose: 16 units Documented by: Insulin Detemir (Levemir Flextouch) 45 units SQ BID [facility] Stop: 08/09/19 20:59 Last Admin: 07/11/19 07:47 Dose: 45 units Documented by: Ipratropium [place] (Atrovent 0.02% 0.5mg/2.5ml) 0.5 mg INH Q2H PRN PRN Reason: sob Stop: 08/09/19 00:46 Levalbuterol HCl (Xopenex 1.25mg/0.5ml Neb) 1.25 mg INH Q2H PRN PRN Reason: sob Stop: 08/09/19 00:46 Lisinopril (Zestril) 5 mg PO DAILY [facility] Stop: 08/09/19 08:59 Last Admin: 07/11/19 07:45 Dose: 5 mg Documented by: Loratadine (Claritin) 10 mg PO DAILY [facility] Stop: 08/09/19 08:59 Last Admin: 07/11/19 07:45 Dose: 10 mg Documented by: Magnesium Oxide (Mag-Ox) 400 mg PO DAILY [facility] Stop: 08/09/19 08:59 Last Admin: 07/11/19 07:45 Dose: 400 mg Documented by: Meclizine HCl (Antivert) 25 mg PO TID PRN PRN Reason: DIZZINESS Stop: 08/09/19 01:11 Metoprolol Succinate (Toprol Xl) 50 mg PO DAILY [facility] Stop: 08/09/19 08:59 Last Admin: 07/11/19 07:47 Dose: 50 mg Documented by: Miscellaneous (Carbohydrates For Hypoglycemia) 15 - 30 gm PO PRN PRN PRN Reason: Hypoglycemia Treatment Stop: 08/09/19 05:29 Miscellaneous Information (Consult Glycemic Management Pharmacy) 1 ea N/A UD PRN PRN Reason: Consult Stop: 08/09/19 01:51 Nitroglycerin (Nitrostat) 0.4 mg SL UD PRN PRN Reason: Chest Pain Stop: 08/09/19 00:46 Nystatin (Mycostatin) 1 appln EXT BID [facility] Stop: 08/09/19 08:59 Last Admin: 07/11/19 10:07 Dose: 1 appln Documented by: Ondansetron HCl (Zofran) 4 mg IV Q6H PRN PRN Reason: Nausea Stop: 08/09/19 00:46 Pantoprazole Sodium (Protonix) 40 mg PO DAILY [facility] Stop: 08/09/19 08:59 Last Admin: 07/11/19 07:46 Dose: 40 mg Documented by: Phenol (Chloraseptic 1.4% [place]) 2 sprays MT Q4H PRN PRN Reason: Sore Throat Stop: 08/10/19 10:13 Polyethylene Glycol (Miralax Powder Packet) 17 gm PO DAILY PRN PRN Reason: Constipation Stop: 08/09/19 00:46 Fluticasone/Salmeterol (Advair Diskus 250/50) 1 puffs INH Q12H [facility] Stop: 08/09/19 08:59 Last Admin: 07/11/19 07:46 Dose: 1 puffs Documented by: Tiotropium [place] (Spiriva) 1 puffs INH QAM [facility] Stop: 08/09/19 08:59 Last Admin: 07/11/19 07:49 Dose: 1 puffs Documented by: Trazodone HCl (Desyrel) 150 mg PO HS [facility] Stop: 08/09/19 20:59 Last Admin: 07/10/19 20:43 Dose: 150 mg Documented by: Vitamin D (Vitamin D3) 1,000 units PO DAILY [facility] Stop: 08/09/19 08:59 Last Admin: 07/11/19 07:46 Dose: 1,000 units Documented by:
--- NOTE | 2019-07-11 14:50 | Pharmacy Report ---
Pharmacy Glycemic Short Note 2 - Date of Service July 11, 2019 - Glycemic Short BSG Results (Last 24 hours): 07/10/19 07/10/19 07/10/19 14:38 14:43 15:50 Glucose 330 H* POC Glucose 333 H* 278 H 07/10/19 07/10/19 07/10/19 16:30 17:37 18:41 Glucose POC Glucose 260 H 186 H 167 H 07/10/19 07/10/19 07/10/19 19:40 19:44 20:34 Glucose 126 H POC Glucose 130 H 116 H 07/10/19 07/10/19 07/10/19 21:29 22:29 23:47 Glucose POC Glucose 95 96 123 H 07/11/19 07/11/19 07/11/19 01:29 04:01 05:59 Glucose POC Glucose 146 H 146 H 166 H 07/11/19 07/11/19 07/11/19 07:42 10:24 10:58 Glucose 157 H POC Glucose 162 H 200 H OUTPATIENT ANTIDIABETIC REGIMEN: * Metformin 500 mg PO BIDM, Jardiance 10 mg PO daily, Trulicity 1.5 mg SC weekly * Levemir 47 units SC AM, 45 units SC PM, Novolog 17 units TIDM * A1c = 11.9 % (07/10/2019) ASSESSMENT: * Patient transitioned off of insulin drip last evening * Patient received 136 units of SC insulin yesterday (92 of which was basal) in addition to approximately 80-100 units of IV insulin * BSGs so far today ranging 162-200 mg/dL * Antibiotics and steroids discontinued PLAN FOR INPATIENT GLYCEMIC CONTROL: * Hold outpatient oral diabetes medications * Basal insulin * Lantus 45 units SQ BID * Bolus insulin * NovoLog per scale ACHS or Q6hrs while NPO * Goal Range: Low 110 mg/dL - High 140 mg/dL * Correction Factor: 15 mg/dL/unit * Nutritional / Prandial insulin per carb ratio of 1 unit per 4 grams CHO consumed * Overnight checks at 00,04 with same parameters added PLAN FOR DISCHARGE: * A1c of 11.9% demonstrates poor glycemic control with current regimen * Patient will likely need increase in home insulin regimen - will follow inpatient insulin needs and reassess closer to discharge * Patient will require outpatient follow-up upon discharge for glycemic management * Support Patient Self-Management * Healthy Lifestyle (diet, exercise, and smoking cessation) * Disease self-management (SMBG) * Prevention of complications (BP, Lipid goals, Immunizations) * Consider outpatient Diabetes Self-Management Education & Support * Most patients on multiple-dose insulin (MDI) should SMBG * Prior to meals and snacks * At bedtime * Prior to exercise * When they suspect low blood glucose * After treating low blood glucose until they are normoglycemic * Prior to critical tasks such as driving * Occasionally postprandially
[2019-07-11] MEDS: TRAZODONE HCL 50 MG TAB PO SCH (20:21)
[2019-07-11] MEDS: ATORVASTATIN 40 MG TAB PO SCH (20:21)
[2019-07-12] MEDS: INSULIN ASPART 100 UNITS/ML 3 ML PEN SC SCH ×4 (00:10→13:17)
[2019-07-12] MEDS: HEPARIN SOD 5,000 UNIT/0.5 ML VIAL SQ SCH ×2 (06:06→13:14)
[2019-07-12] MEDS: NYSTATIN POWDER 15GM BTL EXT SCH (08:45)
[2019-07-12] MEDS: TIOTROPIUM BROMIDE 5 PUFF/90 MCG INH INH SCH (08:45)
[2019-07-12] MEDS: BuPROPion XL 150 MG TABCR PO SCH (08:46)
[2019-07-12] MEDS: FLUTICASONE/SALMETEROL 250/50 (ADVAIR) 14 PUFF/1 INHALER INH SCH (08:46)
[2019-07-12] MEDS: GABAPENTIN 300 MG CAP PO SCH ×2 (08:47→13:14)
[2019-07-12] MEDS: CHOLECALCIFEROL 1,000 UNITS TAB PO SCH (08:47)
[2019-07-12] MEDS: BuPROPion XL 300 MG TABCR PO SCH (08:47)
[2019-07-12] MEDS: PANTOprazole 40 MG TAB PO SCH (08:47)
[2019-07-12] MEDS: FUROSEMIDE 20 MG TAB PO SCH (08:47)
[2019-07-12] MEDS: METOPROLOL SUCC 50MG EXT REL TAB PO SCH (08:47)
[2019-07-12] MEDS: ASPIRIN 81 MG ECTAB PO SCH (08:47)
[2019-07-12] MEDS: CLOPIDOGREL BISULFATE 75 MG TAB PO SCH (08:47)
[2019-07-12] MEDS: LORATADINE 10 MG TAB PO SCH (08:47)
[2019-07-12] MEDS: CITALOPRAM 40 MG TAB PO SCH (08:47)
[2019-07-12] MEDS: lisinopriL 5 MG TAB PO SCH (08:47)
[2019-07-12] MEDS: MAGNESIUM OXIDE 400 MG TAB PO SCH (08:47)
[2019-07-12] MEDS: EZETIMIBE 10 MG TABLET PO SCH (08:47)
[2019-07-12] MEDS: ASCORBIC ACID 500 MG TAB PO SCH (08:47)
[2019-07-12] MEDS: FENOFIBRATE NANOCRYSTALLIZED 145 MG TABLET PO SCH (08:47)
[2019-07-12] MEDS ORDERED: INSULIN DETEMIR FLEXPEN/FLEX TOUCH 100 UNITS/ML 3ML SQ SCH ×2 (09:00→21:00)
--- NOTE | 2019-07-12 13:32 | Discharge Summary ---
Date of Service July 12, 2019 Admission HPI Per Admitting Provider HISTORY OF PRESENT ILLNESS: This is a 63-year-old female with past medical history significant for CAD status post CABG, status post stent, diastolic heart failure, hyperlipidemia, diabetes, sleep apnea, obesity, tobacco use disorder, peripheral artery disease, status post right femoral endarterectomy with pericardial patch angioplasty and bilateral iliac stent placement and aortogram with bilateral lower extremity angiography for bilateral iliac and femoral artery occlusive disease and bilateral infrainguinal occlusive disease with critical limb ischemia on 02/20/2019 in [place], who presents with shortness of breath and cough. The patient says that she is having symptoms for the last 2 weeks, initially treated with prednisone and doxycycline by her primary doctor. Symptom improved again and symptoms came back one week ago and she is on different kind of antibiotics, she does not remember. She is coughing sputum, but she does not look at the sputum, and so does not know the color of the sputum. Denies any fever, chills, getting more progressively short of breath. She is not able to walk uphill or climb stairs, but on level floor she is walking okay. She walks without any support at home, but when she goes to park, she uses a scooter. She lives with her brother and [id number]. When her symptoms were not getting better, she came to the ER. She was 90% on room air. She was on neb treatments and has improved to 92%. Denies any chest pain. No nausea, no vomiting, no abdominal pain. Appetite is okay. No diarrhea or constipation. No blood in stool or black stools. Whenever she is coughing, she is having urinary incontinence but denies any hematuria. Denies any headache. She always has some chronic ear issues. No blurred vision. No sore throat, no difficulty swallowing. No odynophagia. Has chronic lower extremities mild pedal edema, and also mild erythematous changes. Currently resting comfortably and hemodynamically stable. Admission Exam Per Admitting Provider PHYSICAL EXAMINATION: GENERAL: The patient is of moderate build, not in acute distress. VITAL SIGNS: Temperature 37, pulse 120s, respiratory rate 20, blood pressure 135/80, oxygen 92% on room air. HEENT: No pallor, no icterus. Pupils equal, round, reactive to light. NECK: No JVD, no neck masses, no carotid bruits. CARDIOVASCULAR: S1, S2 heard. Tachycardia. No murmurs. RESPIRATORY SYSTEM: Normal AP diameter. No accessory muscle use. Bilateral rhonchi heard. ABDOMEN: Soft, bowel sounds present, nontender. No distention. CENTRAL NERVOUS SYSTEM: Cranial nerves II-XII grossly intact, nonfocal. EXTREMITIES: Bilateral lower extremity mild pedal edema present. Mild erythematous changes. Principal Diagnosis COPD exacerbation DKA Uncontrolled Type II Diabetes Discharge Data Allergies Allergy/AdvReac Type Severity Reaction Status Date / Time No Known Allergies Allergy Unverified 07/09/19 23:17 Consultations 07/09/19 22:19 ED Decision to Admit Stat 07/10/19 00:47 Consult Case Management - Discharge Planning Routine Hospital Course (1) COPD exacerbation: (2) DKA (diabetic ketoacidoses): (3) Bronchitis: 63-year-old female presented to the ER with worsening cough that began 3 weeks prior to arrival. She had seen her primary care doctor and was given a course of doxycycline and prednisone which improved her symptoms. After approximately 1 week of feeling well she began to experience shortness of breath and coughing again. In the ER she was tachycardic with an elevated blood pressure and was found to have an elevated blood glucose. She was admitted to the hospitalist service for presumed COPD exacerbation and placed on IV Solu- Medrol. She was also taken off of her home medications and placed on basal bolus insulin. Shortly afterwards she developed an anion gap metabolic acidosis secondary to DKA state. Her lactate was checked and was 9.2. IV fluids and IV insulin was initiated with ultimate closure of her gap, resolution of her acidosis and improvement of her lactate. She was taken off of steroids. Ad ditionally, in the setting of tachycardia and an elevated lactic acid she was started on broad-spectrum IV antibiotics. However, the following day no clear infectious process was present and she was clinically improved so the Zosyn was stopped. She had a sore throat and was treated successfully with phenol spray. Outside of this she did not have any persistent wheezing, shortness of breath or coughing by hospital day 3. She was feeling well at time of discharge and was hemodynamically stable and afebrile and oxygenating well on room air. She was mentating and ambulating at baseline and was sent home in stable condition with close primary care follow-up recommended. Her hemoglobin A1c reflected an uncontrolled diabetic state and she was encouraged to discuss this further with her doctor. Total Time Total Time Spent Total Time Spent (In Minutes): 60 Total Time Includes: Examination of the Patient, Discharge Planning, Medication Reconciliation and Communication With Other Providers Discharge Plan Discharge Items Patient Disposition: Home - Self-Care Reason For Visit: COPD EX Discharge Diagnosis: COPD exacerbation DKA Uncontrolled Type II Diabetes Condition on Discharge: Good Activity: Resume your previous activity Non-emergency contact: Primary Care Provider Call non-emergency contact if: you have any medication questions, your symptoms worsen, your pain is not controlled, your pain is worsening, your pain is unusual for you, your pain is concerning for you and you have a fever Follow-up/Referrals: PCP,NO [Primary Care Provider] - Diet: Carb Consistent or DM2 and Heart Healthy Addtl Attending Provider Instructions: Please take all medications as instructed on discharge list below. It is recommended that you follow-up with your primary care doctor within 1 week of discharge to ensure you are still doing well and have a complete resolution of your cough. Additionally, your diabetes is uncontrolled. Please work with your primary care doctor to adjust your home medication regimen to reach her goal of hemoglobin A1c less than 7. It was a pleasure taking care of you! Please call if you have any questions or problems. You can reach a [facility] hospitalist on duty at [facility] 24 hours a day by calling [phone]. Take care of yourself. Maya Ha, DO [facility] Hospitalist Pending Studies at Discharge: Yes Studies:: finalized blood cultures Stand-Alone Forms: My [facility], Smoking Cessation Medications and DC Order Prescriptions: Continued metformin 500 mg Tablet 500 mg PO BID RF: 0 fluticasone propion-salmeterol [Advair Diskus] 250-50 mcg/dose Blister With Device 1 inh INHALATION Q12H RF: 0 atorvastatin 80 mg Tablet 80 mg PO HS RF: 0 albuterol sulfate 2.5 mg /3 mL (0.083 %) Solution For Nebulization 2.5 mg INHALATION Q4 PRN (Reason: Shortness Of Breath Or Wheezing) RF: 0 citalopram [Celexa] 40 mg Tablet 40 mg PO BID RF: 0 metoprolol succinate [Toprol XL] 50 mg Tablet Extended Release 24 Hr 50 mg PO DAILY RF: 0 hydrocodone-acetaminophen [[place]] 5-325 mg Tablet 2 tab PO Q6H PRN (Reason: Pain) RF: 0 clopidogrel [Plavix] 75 mg Tablet 75 mg PO DAILY RF: 0 omeprazole 40 mg Capsule,Delayed Release(Dr/Ec) 40 mg PO DAILY RF: 0 aspirin [Aspir-81] 81 mg Tablet,Delayed Release (Dr/Ec) 81 mg PO DAILY RF: 0 insulin aspart U-100 [Novolog U-100 Insulin aspart] 100 unit/mL Solution 17 unit SUBCUT TIDM RF: 0 trazodone 150 mg Tablet 150 mg PO HS RF: 0 lisinopril 5 mg Tablet 5 mg PO DAILY RF: 0 furosemide [Lasix] 20 mg Tablet 20 mg PO DAILY RF: 0 nystatin [Nystop] 100,000 unit/gram Powder 1 applic TOPICAL BID RF: 0 albuterol sulfate [Ventolin HFA] 90 mcg/actuation Hfa Aerosol Inhaler 2 puff INHALATION Q4 PRN (Reason: Shortness Of Breath Or Wheezing) RF: 0 loratadine [Claritin] 10 mg Tablet 10 mg PO DAILY RF: 0 ezetimibe [Zetia] 10 mg Tablet 10 mg PO DAILY RF: 0 Levemir FlexTouch U-100 Insuln 100 unit/mL (3 mL) Insulin Pen 40 unit SUBCUT QPM RF: 0 Levemir FlexTouch U-100 Insuln 100 unit/mL (3 mL) Insulin Pen 47 unit SUBCUT QAM RF: 0 Trulicity 1.5 mg/0.5 mL Pen Injector 1.5 mg SUBCUT WK RF: 0 Fenofibrate Tab 145 mg PO DAILY RF: 0 Jardiance 10 mg Tablet 10 mg PO DAILY RF: 0 Praluent Pen 75 mg/mL Pen Injector 75 mg SUBCUT .Q14 DAYS RF: 0 vitamin A 10,000 unit Capsule 10,000 unit PO DAILY RF: 0 ascorbic acid (vitamin C) [Vitamin C] 500 mg Tablet 500 mg PO DAILY RF: 0 meclizine 25 mg Tablet 25 mg PO TID PRN (Reason: DIZZY) RF: 0 gabapentin 300 mg Capsule 300 mg PO TID RF: 0 ergocalciferol (vitamin D2) [Vitamin D2] 1,250 mcg (50,000 unit) Capsule 1,250 mcg PO WK RF: 0 bupropion HCl [Wellbutrin XL] 300 mg Tablet Extended Release 24 Hr 300 mg PO QAM RF: 0 cholecalciferol (vitamin D3) [Vitamin D3] 25 mcg (1,000 unit) Tablet 1,000 unit PO DAILY RF: 0 magnesium oxide 400 mg magnesium Tablet 400 mg PO DAILY RF: 0 Spiriva with HandiHaler 18 mcg Capsule, W/Inhalation Device 1 cap INHALATION DAILY RF: 0 bupropion HCl [Wellbutrin XL] 150 mg Tablet Extended Release 24 Hr 150 mg PO DAILY RF: 0 Discharge Orders: Discharge Order (Routine); Ordered 07/12/19 Ordered By: Maya Bowens/Other Patient Handouts: Diabetes Heart Disease, Diabetes Pasting Inspector Complications, Blood Sugar Check, Diabetes Healthy Meals, Diabetes Carbs, Diabetes Exercise Benefits, Diabetes Living Life, Diabetes Manage A1C Test Admission Data Admit Date/Time: 07/09/19 23:44 Attending Provider: Maya Ha Admit Provider: Austin Harper Primary Care Provider: PCP,NO Other Providers: Austin aHrper
--- NOTE | 2019-07-12 14:53 | Pharmacy Report ---
Pharmacy Glycemic Short Note 2 - Date of Service July 12, 2019 - Glycemic Short BSG Results (Last 24 hours): 07/11/19 07/11/19 07/12/19 17:30 20:19 00:04 POC Glucose 88 125 H 122 H 07/12/19 07/12/19 07/12/19 03:51 08:15 11:57 POC Glucose 95 98 232 H OUTPATIENT ANTIDIABETIC REGIMEN: * Metformin 500 mg PO BIDM, Jardiance 10 mg PO daily, Trulicity 1.5 mg SC weekly * Levemir 47 units SC AM, 45 units SC PM, Novolog 17 units TIDM * A1c = 11.9 % (07/10/2019) ASSESSMENT: 07/12 * Patient is currently receiving an average of 130 units of insulin per day * 90 units of basal insulin (very heavily weighted on basal insulin) * 40 units of prandial/correctional insulin * BSGs ranging 88-232 over the past 24hrs * Risk factors for insulin resistance are constant over the past 24hrs * Anticipating insulin regimen will need adjusted for the next 24hrs d/t : * AM Fasting BSG = 95 therefore Basal insulin needs decreased * Total daily dose = 130 therefore may need to evenly re-distribute regimen 50%:50% basal:prandial to prevent hypo/hyperglycemia * Initially loosened Novolog parameters this AM when nurse called re: BSG of 98. Pre-lunch BSG now up to 232 mg/dL so will tighten back to previous parameters. Of note, AM Novolog not given until ~0930 07/11 * Patient transitioned off of insulin drip last evening * Patient received 136 units of SC insulin yesterday (92 of which was basal) in addition to approximately 80-100 units of IV insulin * BSGs so far today ranging 162-200 mg/dL * Antibiotics and steroids discontinued PLAN FOR INPATIENT GLYCEMIC CONTROL: * Hold outpatient oral agents + GLP-1 * Basal insulin - decrease to re-distribute to 50/50 split * Lantus 25 units this AM, 40 units this PM, then * Lantus 35 units BID * Bolus insulin * NovoLog per scale ACHS or Q6hrs while NPO * Goal Range: Low 110 mg/dL - High 140 mg/dL * Correction Factor: 10 mg/dL/unit * Nutritional / Prandial insulin per carb ratio of 1 unit per 4 grams CHO consumed PLAN FOR DISCHARGE: * A1c of 11.9% demonstrates poor glycemic control with current regimen * Current inpatient needs are less than outpatient regimen so I suspect elevated A1c likely related to non-compliance with BSG testing and CHO consumption. * Recommend to continue outpatient regimen on discharge, with close f/u as an outpatient * Support Patient Self-Management * Healthy Lifestyle (diet, exercise, and smoking cessation) * Disease self-management (SMBG) * Prevention of complications (BP, Lipid goals, Immunizations) * Consider outpatient Diabetes Self-Management Education & Support * Most patients on multiple-dose insulin (MDI) should SMBG * Prior to meals and snacks * At bedtime * Prior to exercise * When they suspect low blood glucose * After treating low blood glucose until they are normoglycemic * Prior to critical tasks such as driving * Occasionally postprandially
[2019-07-13] MEDS ORDERED: INSULIN DETEMIR FLEXPEN/FLEX TOUCH 100 UNITS/ML 3ML SQ SCH (09:00)
== END 2019-07-12 17:51 | disposition home or self-care (01) ==
LOC: ED 19:58 → 2S 23:44 → SUATTDRO 23:44 → INTOOBSV 23:44 → 2S 07-10 00:24 → 3N 07-11 12:33

== ENCOUNTER 2020-09-27 07:06 | Inpatient (IN) ==
[2020-09-27] MEDS ORDERED: SODIUM CHLORIDE 0.9% 1000ML 500 ML IV ONE (07:26)
[2020-09-27] MEDS ORDERED: MAGNESIUM SULFATE / D5W 1 GM/100 ML BAG IV STA (07:26)
[2020-09-27] MEDS ORDERED: ACETAMINOPHEN 1,000 MG/100 ML VIAL IV STA (07:26)
[2020-09-27 07:43] LABS: Basophils # (auto) 0.02 K/uL (0-0.2); Basophils % (auto) 0.2 %; Eosinophils # (auto) 0.12 K/uL (0-0.5); Eosinophils % (auto) 1.4 %; Hematocrit (blood only) 43.9 % (37-47); Hemoglobin 15.8 g/dL (12.0-16.0); Immature Granulocytes # (auto) 0.01 K/uL (0.00-0.02); Immature Granulocytes % (auto) 0.1 %; Lymphocytes # (auto) 1.94 K/uL (1.2-3.4); Lymphocytes % (auto) 22.9 %; Mean Corpuscular Hemoglobin 30.2 pg (25-34); Mean Corpuscular Volume 83.9 fL (80-100); Mean Platelet Volume 9.6 fL (7.4-10.4); Monocytes # (auto) 0.51 K/uL (0.11-0.59); Neutrophils # (auto) 5.86 K/uL (1.4-6.5); Neutrophils % (auto) 69.4 %; Platelet Count 214 K/uL (130-400); RDW Coefficient of Variation 14.1 % (11.5-14.5); RDW Standard Deviation 43.5 fL (36.4-46.3); Red Blood Count 5.23 M/uL (4.2-5.4); White Blood Count 8.46 K/uL (4.8-10.8)
[2020-09-27] MEDS ORDERED: OPTIRAY 320 125ml IV ONE (07:45)
[2020-09-27 07:46] LABS: iSTAT Creatinine 1.1 mg/dl (0.6-1.3); iSTAT Ionized Calcium 1.1 mmol/l (1.12-1.32); iSTAT Potassium 4.1 mmol/L (3.3-5.0)
[2020-09-27 07:57] LABS: Partial Thromboplastin Time 25.1 Seconds (21.0-31.0); Prothrombin Time 9.8 Seconds (9.0-12.0)
--- NOTE | 2020-09-27 07:57 | Emergency Department Note ---
Impression & Plan Acute left-sided weakness, CVA (cerebral vascular accident) ED Provider Note NAME: CHALINO MURILLO AGE: 65 SEX: F : 1955 ARRIVES VIA: Ambulance INFORMANT: Patient, EMS ED PROVIDER(S): Tommie Perera MD CHIEF COMPLAINT: left sided weakness HPI: This 65-year-old female who presents emergency department complaining of left-sided facial droop. Patient reports she went to bed at 9:00 last evening and awoke at 4 AM this morning with her left side noticeably weak. The patient reports she is having difficulty ambulating due to the left side. Family also noticed a left-sided facial droop and called EMS. Her last well-known was 2100 last evening. The patient is also complaining of a headache. She denies any fevers or chills. She describes the pain as a ache made worse with movement however immobilization makes it better. She takes aspirin and Plavix and took them last evening before bed ROS: See above HPI for pertinent positives & negatives. A total of 10 systems reviewed and were otherwise negative. PAST MEDICAL HISTORY: See Below PAST SURGICAL HISTORY: See Below FAMILY HISTORY: See Below SOCIAL HISTORY: See Below HOME MEDICATIONS: See Below ALLERGIES: See Below VITALS: See Below PHYSICAL EXAMINATION: VITAL SIGNS - Vital signs and nursing notes were reviewed. GENERAL - 65-year-old female appearing stated age who is in no acute distress. Communicates well with provider and answers questions appropriately, slight facial droop on left SKIN - Without rashes. HEAD - NC/AT. EYES - PERRL with EOMI bilaterally. Sclera anicteric. Palpebral conjunctiva pink and moist with no injection noted. EARS - No deformities of external structures noted on gross examination bilaterally. NOSE - Midline and without cyanosis. No epistaxis or purulent drainage noted. Septum midline without deviation or septal hematoma noted. MOUTH/OROPHARYNX - Without perioral cyanosis. Buccal mucosa pink and moist and without leukoplakia. Tongue midline with equal elevation of palate bilaterally. No tonsillar hypertrophy, erythema, or exudates noted. NECK - Neck with FROM. Supple to palpation. lymphadenopathy noted. No nuchal rigidity. LUNGS - Chest wall symmetric without accessory muscle use, intercostals retractions, or central cyanosis. Normal vesicular breath sounds CTA B/L. No wheezes, rales, or rhonchi appreciated. CARDIAC - RRR with S1/S2. No murmur, rubs, or gallops appreciated. ABDOMEN - Abdominal contour without pulsations or visible masses. BS normoactive all four quadrants. No tenderness, palpable masses, hepatosplenomegaly, or ascites noted. EXTREMITIES - No clubbing or peripheral cyanosis. No pretibial edema present. +3/5 radial, posterior tibial, and dorsalis pedis pulses palpated throughout. 4/5 strength noted in [place] [facility] NEUROLOGIC - Cranial nerves II through XII grossly intact. Sensory intact to light touch throughout. Patellar reflexes +2/4. PSYCH - A&Ox3 and cooperates fully with examiner. Pt is very pleasant and interacts well with examiner. MEDICAL DECISION MAKING: Patient was seen and evaluated as above in room A11B. Review was performed of nursing notes and vital signs. I did review pertinent previous visits and patient history. After obtaining a thorough history and physical examination the above work up was performed. This is a 65-year-old female who was last well-known was 9 PM last evening. The patient woke up and noted that she was weaker on the left side this morning. Based on this presentation I do not feel that she is a candidate for TPA. I did discuss her case and presentation as well as her CT findings with the stroke neurologist at [facility] who recommended an MRI. In the meanwhile patient was given magnesium as well as aspirin here in the emergency department. I did discuss the case with the hospitalist service who did agree to admit the patient patient does not have an elevation his white blood cell count An order was placed for continuous cardiac monitoring. The monitor shows a rate of 68 with Normal SInus rhythm. The patient was evaluated during a period of high volume and high acuity during the global COVID-19 pandemic, and that diagnosis was suspected/considered upon their initial presentation. Their evaluation, treatment and testing was consistent with current guidelines for patients who present with complaints or symptoms that may be related to COVID-19. Patient was seen while provider was wearing PPE. Triage Nursing notes reviewed. Prior medical records reviewed Vital Signs: reviewed and remarkable for no significant abnormalities Differential diagnosis: Infection, dehydration, metabolic abnormality, hypo/hyperglycemia, electrolyte disturbance, anemia, hypoxia, cardiac sources, intracerebral event, toxicologic, neurologic, as well as other pathologies. ER treatment provided: See below Diagnostics interpreted by me: ECG: Normal sinus rhythm old anterior septal infarct no ST elevation or depression QTC is 447 ventricular rate of [address] elevation or depression EKG is compared to July 09, 2019 and is unchanged Laboratory studies: As stated above and show below. Imaging studies: See below Consultation(s): Stroke Neurologist Radiology Internal Medicine Critical Care: I have personally spent greater than 90 minutes of critical care time in the direct management of this patient. This includes bedside care, interpretation of diagnostic studies, and testing, discussion with consultants, patient, and family members, and other required patient management activities. This 90 minutes is in excess of all separately billable procedures. Past Med/Surg History Medical History CAD (coronary artery disease) Chronic diastolic heart failure COPD (chronic obstructive pulmonary disease) Depression DMII (diabetes mellitus, type 2) PVD (peripheral vascular disease) Tobacco abuse Surgical History S/P arterial stent Approx. [address] Shrestha at [facility] S/P CABG x 3 2014 Family History Father Myocardial infarction Other No significant family history Social History Smoking Status: Current every day smoker Cigarettes Per Day: 5-6; Second Hand Exposure: No; Do You Dip or Chew Tobacco: No; Tobacco Cessation Education Requested by Patient: No Hx Alcohol Use: Yes Hx Substance Use: No Preferred Language: Khmer Communication Ability: Effective Domestic Violence Advocate Required: No Beliefs That Will Affect Care: None marital status: Current Living Situation: Family Current Living Situation Comment: Patient lives with her Brother and DELFIN Feels Safe at Home: Yes Safety Concerns: Feels Safe At This Time Assistive Devices: Glasses Allergies Allergies Allergy/AdvReac Type Severity Reaction Status Date / Time No Known Allergies Allergy Unverified 09/27/20 10:17 Home Meds Home Medications Medication Instructions Recorded Confirmed Fenofibrate Tab 145 mg PO DAILY 07/09/19 09/27/20 Jardiance 10 mg PO DAILY 07/09/19 09/27/20 Levemir FlexTouch U-100 Insuln 40 unit SUBCUT QPM 07/09/19 09/27/20 Levemir FlexTouch U-100 Insuln 47 unit SUBCUT QAM 07/09/19 09/27/20 Praluent Pen 75 mg SUBCUT .Q14 DAYS 07/09/19 09/27/20 Trulicity 1.5 mg SUBCUT WK 07/09/19 09/27/20 albuterol sulfate 2.5 mg INHALATION Q4 PRN 07/09/19 09/27/20 albuterol sulfate [Ventolin HFA] 2 puff INHALATION Q4 PRN 07/09/19 09/27/20 ascorbic acid (vitamin C) [Vitamin 500 mg PO DAILY 07/09/19 09/27/20 C] aspirin [Aspir-81] 81 mg PO DAILY 07/09/19 09/27/20 atorvastatin 80 mg PO HS 07/09/19 09/27/20 bupropion HCl [Wellbutrin XL] 300 mg PO QAM 07/09/19 09/27/20 cholecalciferol (vitamin D3) 1,000 unit PO DAILY 07/09/19 09/27/20 [Vitamin D3] citalopram [Celexa] 40 mg PO BID 07/09/19 09/27/20 clopidogrel [Plavix] 75 mg PO DAILY 07/09/19 09/27/20 ergocalciferol (vitamin D2) 1,250 mcg PO WK 07/09/19 09/27/20 [Vitamin D2] ezetimibe [Zetia] 10 mg PO DAILY 07/09/19 09/27/20 fluticasone propion-salmeterol 1 inh INHALATION Q12H 07/09/19 09/27/20 [Advair Diskus] furosemide [Lasix] 20 mg PO DAILY 07/09/19 09/27/20 gabapentin 300 mg PO TID 07/09/19 09/27/20 hydrocodone-acetaminophen [Walsh] 2 tab PO Q6H PRN 07/09/19 09/27/20 insulin aspart U-100 [Novolog 17 unit SUBCUT TIDM 07/09/19 09/27/20 U-100 Insulin aspart] lisinopril 5 mg PO DAILY 07/09/19 09/27/20 loratadine [Claritin] 10 mg PO DAILY 07/09/19 09/27/20 magnesium oxide 400 mg PO DAILY 07/09/19 09/27/20 meclizine 25 mg PO TID PRN 07/09/19 09/27/20 metformin 500 mg PO BID 07/09/19 09/27/20 metoprolol succinate [Toprol XL] 50 mg PO DAILY 07/09/19 09/27/20 nystatin [Nystop] 1 applic TOPICAL BID 07/09/19 09/27/20 omeprazole 40 mg PO DAILY 07/09/19 09/27/20 trazodone 150 mg PO HS 07/09/19 09/27/20 vitamin A 10,000 unit PO DAILY 07/09/19 09/27/20 Spiriva with HandiHaler 1 cap INHALATION DAILY 07/10/19 09/27/20 bupropion HCl [Wellbutrin XL] 150 mg PO DAILY 07/10/19 09/27/20 Results & Data (ED) Vital Signs Vital Signs - 24 hr 09/27/20 07:10 09/27/20 07:16 09/27/20 07:30 Temperature 37.4 C Temperature Source Oral Pulse Rate 81 Pulse Rate from SpO2 Sensor 80 80 Respiratory Rate 21 Respiratory Effort / Characteristics Non-Labored Respiratory Depth Normal Respiratory Pattern Regular Blood Pressure 156/75 H 146/85 H 158/79 H Blood Pressure Mean 102 105 105 Blood Pressure Position Sitting Pulse Oximetry 95 95 94 Oxygen Delivery Method Room Air Sepsis Recent Fever Within 48 Hours No Sepsis New/Unexplained Change in Mental Status No Sepsis Action Taken by Nursing No Action Required 09/27/20 07:56 09/27/20 08:00 09/27/20 08:15 Temperature Temperature Source Pulse Rate 82 79 80 Pulse Rate from SpO2 Sensor 82 79 80 Respiratory Rate 22 23 25 H Respiratory Effort / Characteristics Respiratory Depth Respiratory Pattern Blood Pressure 153/76 H 145/67 H 138/80 Blood Pressure Mean 101 93 99 Blood Pressure Position Pulse Oximetry 95 96 95 Oxygen Delivery Method Sepsis Recent Fever Within 48 Hours Sepsis New/Unexplained Change in Mental Status Sepsis Action Taken by Nursing 09/27/20 08:31 09/27/20 08:45 09/27/20 09:13 Temperature Temperature Source Pulse Rate 78 76 81 Pulse Rate from SpO2 Sensor 78 76 81 Respiratory Rate 23 26 H 25 H Respiratory Effort / Characteristics Respiratory Depth Respiratory Pattern Blood Pressure 140/65 154/85 H 143/78 H Blood Pressure Mean 90 108 99 Blood Pressure Position Pulse Oximetry 95 95 96 Oxygen Delivery Method Sepsis Recent Fever Within 48 Hours Sepsis New/Unexplained Change in Mental Status Sepsis Action Taken by Nursing 09/27/20 09:15 Temperature Temperature Source Pulse Rate 77 Pulse Rate from SpO2 Sensor 77 Respiratory Rate 25 H Respiratory Effort / Characteristics Respiratory Depth Respiratory Pattern Blood Pressure 155/74 H Blood Pressure Mean 101 Blood Pressure Position Pulse Oximetry 96 Oxygen Delivery Method Sepsis Recent Fever Within 48 Hours Sepsis New/Unexplained Change in Mental Status Sepsis Action Taken by [facility] Medications Current Medication List: was personally reviewed by me Laboratory Data Attestation: I reviewed the patient's lab results. Result diagrams: 09/27/20 07:26 09/27/20 07:26 Lab Results 09/27/20 09/27/20 09/27/20 Range/Units 07:26 07:26 07:26 WBC 8.46 (4.8-10.8) K/uL RBC 5.23 (4.2-5.4) M/uL Hgb 15.8 (12.0-16.0) g/dL POC Hgb (12.0-16.0) g/dl Hct 43.9 (37-47) % POC Hct (37-47) % MCV 83.9 (80-100) fL MCH 30.2 (25-34) pg MCHC 36.0 (32-36) g/dL RDW Std Deviation 43.5 (36.4-46.3) fL RDW Coeff of Carole 14.1 (11.5-14.5) % Plt Count 214 (130-400) K/uL MPV 9.6 (7.4-10.4) fL Immature Gran % (Auto) 0.1 % Neut % (Auto) 69.4 % Lymph % (Auto) 22.9 % [place] % (Auto) 6.0 % Eos % (Auto) 1.4 % Baso % (Auto) 0.2 % Neut # (Auto) 5.86 (1.4-6.5) K/uL Lymph # (Auto) 1.94 (1.2-3.4) K/uL [place] # (Auto) 0.51 (0.11-0.59) K/uL Eos # (Auto) 0.12 (0-0.5) K/uL Baso # (Auto) 0.02 (0-0.2) K/uL Immature Gran # (Auto) 0.01 (0.00-0.02) K/uL PT 9.8 (9.0-12.0) Seconds INR 1.0 (0.9-1.1) APTT 25.1 (21.0-31.0) Seconds PTT Ratio 1.0 POC Sodium (135-144) mmol/L Sodium 137 (136-145) mmol/L POC Potassium (3.3-5.0) mmol/L Potassium 4.1 (3.5-5.1) mmol/L POC Chloride (101-112) mmol/L Chloride 105 (98-107) mmol/L Carbon Dioxide 27 (21-32) mmol/L POC Total CO2 (24-31) mmol/L Anion Gap 5.0 (3-11) POC Anion Gap (16-25) mmol/L POC BUN (7-18) mg/dl BUN 22 H (7-18) mg/dl Creatinine 1.22 H (0.6-1.2) mg/dl POC Creatinine (0.6-1.3) mg/dl Est Cr Clr Drug Dosing Not Reportable Est GFR ( Amer) 53.5 Est GFR (Non-Af Amer) 46.1 BUN/Creatinine Ratio 17.9 (10-20) Glucose 201 H (70-99) mg/dl POC Glucose (other) (70-99) mg/dl Calcium 8.2 L (8.5-10.1) mg/dl POC Ioniz Calcium Kisha (1.12-1.32) mmol/l Magnesium 1.5 L (1.8-2.4) mg/dl Total Bilirubin 0.2 (0.2-1) mg/dl AST 14 L (15-37) U/L ALT 14 (12-78) U/L Alkaline Phosphatase 56 (45-117) U/L Troponin I < 0.015 (0-0.045) ng/ml Total Protein 6.1 L (6.4-8.2) gm/dl Albumin 2.7 L (3.4-5.0) gm/dl Globulin 3.4 (2.5-4.0) gm/dl Albumin/Globulin Ratio 0.8 L (0.9-2) COVID-19 Eval Order SARS-CoV-2 (PCR) (Negative) Influenza Type A (PCR) (Neg) Influenza Type B (PCR) (Neg) RSV (RT-PCR) (Neg) 09/27/20 09/27/20 09/27/20 Range/Units 07:32 08:51 08:51 WBC (4.8-10.8) K/uL RBC (4.2-5.4) M/uL Hgb (12.0-16.0) g/dL POC Hgb 15.0 (12.0-16.0) g/dl Hct (37-47) % POC Hct 44 (37-47) % MCV (80-100) fL MCH (25-34) pg MCHC (32-36) g/dL RDW Std Deviation (36.4-46.3) fL RDW Coeff of Carole (11.5-14.5) % Plt Count (130-400) K/uL MPV (7.4-10.4) fL Immature Gran % (Auto) % Neut % (Auto) % Lymph % (Auto) % [place] % (Auto) % Eos % (Auto) % Baso % (Auto) % Neut # (Auto) (1.4-6.5) K/uL Lymph # (Auto) (1.2-3.4) K/uL [place] # (Auto) (0.11-0.59) K/uL Eos # (Auto) (0-0.5) K/uL Baso # (Auto) (0-0.2) K/uL Immature Gran # (Auto) (0.00-0.02) K/uL PT (9.0-12.0) Seconds INR (0.9-1.1) APTT (21.0-31.0) Seconds PTT Ratio POC Sodium 138 (135-144) mmol/L Sodium (136-145) mmol/L POC Potassium 4.1 (3.3-5.0) mmol/L Potassium (3.5-5.1) mmol/L POC Chloride 102 (101-112) mmol/L Chloride (98-107) mmol/L Carbon Dioxide (21-32) mmol/L POC Total CO2 28 (24-31) mmol/L Anion Gap (3-11) POC Anion Gap 13.0 L (16-25) mmol/L POC BUN 22 H (7-18) mg/dl BUN (7-18) mg/dl Creatinine (0.6-1.2) mg/dl POC Creatinine 1.1 (0.6-1.3) mg/dl Est Cr Clr Drug Dosing Est GFR ( Amer) Est GFR (Non-Af Amer) BUN/Creatinine Ratio (10-20) Glucose (70-99) mg/dl POC Glucose (other) 203 H (70-99) mg/dl Calcium (8.5-10.1) mg/dl POC Ioniz Calcium Kisha 1.10 L (1.12-1.32) mmol/l Magnesium (1.8-2.4) mg/dl Total Bilirubin (0.2-1) mg/dl AST (15-37) U/L ALT (12-78) U/L Alkaline Phosphatase (45-117) U/L Troponin I (0-0.045) ng/ml Total Protein (6.4-8.2) gm/dl Albumin (3.4-5.0) gm/dl Globulin (2.5-4.0) gm/dl Albumin/Globulin Ratio (0.9-2) COVID-19 Eval Order CovFluRsv at [facility] SARS-CoV-2 (PCR) NEGATIVE (Negative) Influenza Type A (PCR) Negative (Neg) Influenza Type B (PCR) Negative (Neg) RSV (RT-PCR) Negative (Neg) Administered Medications Discontinued Medications Gadobutrol (Gadobutrol 65ml Vial) 8.5 ml IV ONCE ONE Stop: 09/27/20 10:07 Last Admin: 09/27/20 10:07 Dose: 8.5 ml Documented by: [id number] Heparin Sodium/Dextrose (Heparin Iv Standard *No* Bolus) 1 ea IV ONE ONE; Protocol Stop: 09/27/20 08:16 Last Admin: 09/27/20 09:58 Dose: Not Given Documented by: [id number] Magnesium Sulfate/Dextrose (Magnesium Sulfate / D5w) 1 gm in 100 mls @ 100 mls/hr IV NOW STA Stop: 09/27/20 08:25 Last Infusion: 09/27/20 11:34 Dose: 50 mls/hr Documented by: [id number] Infusion: 09/27/20 09:40 Dose: 0 mls/hr Documented by: [id number] Admin: 09/27/20 09:08 Dose: 100 mls/hr Documented by: [id number] Acetaminophen (Ofirmev) 1,000 mg in 100 mls @ 400 mls/hr IV NOW STA Stop: 09/27/20 07:40 Last Infusion: 09/27/20 09:01 Dose: 0 mls/hr Documented by: [id number] Admin: 09/27/20 08:46 Dose: 400 mls/hr Documented by: [id number] Sodium Chloride (Nss 1000ml) 500 mls @ 999 mls/hr IV .Q31M ONE Stop: 09/27/20 07:56 Last Infusion: 09/27/20 09:15 Dose: 0 mls/hr Documented by: [id number] Admin: 09/27/20 08:44 Dose: 999 mls/hr Documented by: [id number] Heparin Sodium/Dextrose (Heparin Sodium/Dextrose) 25,000 units in 500 mls @ 0.02 mls/hr IV .Q24H [facility]; Protocol Stop: 10/27/20 08:14 Last Admin: 09/27/20 09:58 Dose: Not Given Documented by: [id number] Ioversol (Optiray 320 125ml) 120 ml IV ONCE ONE Stop: 09/27/20 07:46 Last Admin: 09/27/20 07:45 Dose: 120 ml Documented by: [id number] Imaging Data Attestation: I personally reviewed and interpreted this imaging study as follows: Radiologist's Impression: Chest X-Ray 09/27/20 06:49 XR chest 1V portable CLINICAL HISTORY: Stroke Like Symptoms COMPARISON STUDY: 07/11/2019 FINDINGS: There are postsurgical changes of a midline sternotomy. An opaque somewhat triangular density projected over the mid thoracic spine may be extraneous to the patient. There is slight interstitial prominence but no evidence of overt failure. There is no lobar consolidation. There are no pleural effusions.[ IMPRESSION: 1. Slight interstitial prominence, but no evidence of overt failure 2. No evidence of focal pulmonary consolidation 3. Triangular opaque density projected over the mid thoracic spine possibly extraneous to the patient ACT 112: Negative or not required by law. Electronically signed by: Paulino Quintanilla M.D. 09/27/2020 8:[address] 09/27/20 06:49 CT head/brain wo con CLINICAL HISTORY: Stroke Like Symptoms COMPARISON STUDY: No previous studies for comparison. TECHNIQUE: Axial CT of the brain is performed from the vertex to the skull base. IV contrast was not administered for this examination. A dose lowering technique was utilized adhering to the principles of ALARA. CT DOSE: FINDINGS: No intra or extra-axial mass lesions are visualized. There is no CT evidence of acute cortical infarction. There is no evidence of midline shift. There is no acute hemorrhage. No calvarial fractures are visualized. There are moderate white matter hypodensities likely on a small vessel basis. There is an old left basal ganglia infarct. There is no evidence of pathologic ventricular dilatation. There is no evidence of acute sinusitis IMPRESSION: No acute intracranial findings ACT 112: Negative or not required by law. Electronically signed by: Paulino Quintanilla M.D. 09/27/2020 7:58 AM Head CTA 09/27/20 06:49 CT angio head w con CLINICAL HISTORY: Stroke Like Symptoms TECHNIQUE: CT angiography of the head was performed in a dynamic helical fashion during intravenous administration of 120 cc of Optiray 320. MIP imaging was performed. A dose lowering technique was utilized adhering to the principles of ALARA. CT DOSE: COMPARISON STUDY: No previous studies for comparison. FINDINGS: There are no lesion suspicious for aneurysm. The dural venous sinuses appear patent. There is no evidence for major intracranial branch occlusion. There is narrowing of the right internal carotid artery at the level of the carotid canal. The configuration raises the possibility of a focal dissection. IMPRESSION: 1. 75% diameter narrowing of the right internal carotid artery at the level of the carotid canal. The linear configuration of this stenosis raises the possibility of a focal dissection. ACT 112: Negative or not required by law. Electronically signed by: Paulino Quintanilla M.D. 09/27/2020 8:10 AM Neck CTA 09/27/20 06:49 CT angio neck with con CLINICAL HISTORY: Stroke Like Symptoms COMPARISON STUDY: No previous studies for comparison. TECHNIQUE: CT angiography was performed from the aortic arch to the skull base. MIP imaging was performed. The patient was scanned in a dynamic helical fashion during intravenous administration of 120 cc of Optiray 320. A dose lowering technique was utilized adhering to the principles of ALARA. CT DOSE: 1134.22 mGy.cm Technique: CT angiogram of the carotid and vertebral arteries was obtained using intravenous contrast and 3-D reconstruction. NASCET criteria was utilized. Findings: There are atheromatous changes the level the right carotid bulb without evidence of a hemodynamically significant stenosis. There is narrowing of the right internal carotid at the level of the skull base, possibly secondary to a dissection. There are moderate atheromatous changes the level left carotid bulb without evidence of a hemodynamically significant stenosis. Atheromatous changes are also present at the origin left internal carotid artery without evidence of hemodynamically significant stenosis. There is no evidence of hemodynamically significant vertebral stenosis. There is no evidence of vertebral dissection. IMPRESSION: 1. Narrowing of the right internal carotid artery at the level of the skull base, possibly secondary to a dissection ACT 112: Negative or not required by law. Electronically signed by: Paulino Quintanilla M.D. 09/27/2020 8:04 AM Brain MRI 09/27/20 07:26 MRI OF THE BRAIN WITHOUT AND WITH IV CONTRAST CLINICAL HISTORY: Left-sided weakness. Possible acute stroke. COMPARISON STUDY: Noncontrast head CT dated 09/27/2020, CT angiography the brain dated 09/27/2020 TECHNIQUE: MRI of the brain was performed from the vertex to the skull base utilizing various T1 and T2 weighted sequences. Following the IV administration of 8.5 mL of Gadavist contrast, additional enhanced images were obtained. FINDINGS: Sagittal T1, axial diffusion, proton density and T2 weighted axial, coronal FLAIR, and pre and post axial T1-weighted images were acquired. These were supplemented with post gadolinium coronal T1 weighted images. No intra or extra-axial mass lesions are visualized. There is a 6 mm focus of restricted water diffusion within the right periventr icular deep white matter consistent with acute/subacute infarct. There is an equivocal second 4 mm focus within the right basal ganglia. There is no evidence of ventricular dilatation. Proton density T2-weighted and FLAIR images reveal extensive foci of increased T2 signal within the white matter, likely on a small vessel basis. There are old scattered lacunar infarcts. There are foci of increased T2 signal within the mastoids consistent with an inflammatory etiology. There is no evidence of pathologic enhancement. Thin section images were obtained through the skull base to evaluate the right internal carotid at the level the carotid canal. Images confirm the presence of carotid narrowing at this level. Unfortunately images are degraded by motion artifact. The findings again favor a focal dissection, although eccentric focal atherosclerotic narrowing could potentially appear similar. IMPRESSION: 1. Acute/subacute 6 mm infarct in the right parietal periventricular deep white matter. Potential second smaller focus of acute sinusitis of acute infarction within the right basal ganglia 2. Stenosis of the right internal carotid artery at the level of the carotid canal. A focal dissection is favored over eccentric focal atherosclerotic narrowing 3. Moderate diffuse white matter disease with old lacunar infarcts likely a small vessel basis 4. Foci of increased T2 signal within the mastoid likely inflammatory ACT 112: Negative or not required by law. Electronically signed by: Paulino Quintanilla M.D. 09/27/2020 11:14 AM Discharge Plan Visit Data Chief Complaint: Stroke/CVA Symptoms Stated Complaint: STROKE SYMPTOMS ED Provider: Tommie Perera Discharge Problem: Acute left-sided weakness, CVA (cerebral vascular accident) Patient Disposition: Admitted As Inpatient Discharge Instructions Interventions: ED Discharge Assessment Last Done: 09/27/20 11:04 Discharge Problem: CVA (cerebral vascular accident) Qualifiers: CVA mechanism: unspecified Qualified Code(s): I63.9 - Cerebral infarction, unspecified
[2020-09-27 07:58] LABS: Alanine Aminotransferase 14 U/L (12-78); Albumin Level 2.7 gm/dl (3.4-5.0); Aspartate Aminotransferase 14 U/L (15-37); BUN Creatinine Ratio 17.9 (10-20); Blood Urea Nitrogen 22 mg/dl (7-18); Calcium 8.2 mg/dl (8.5-10.1); Carbon Dioxide 27 mmol/L (21-32); Chloride 105 mmol/L (98-107); Est GFR (African American) 53.5; Est GFR (Non-African American) 46.1; Glucose 201 mg/dl (70-99); Magnesium 1.5 mg/dl (1.8-2.4); Potassium 4.1 mmol/L (3.5-5.1); Sodium 137 mmol/L (136-145)
[2020-09-27 08:03] LABS: Albumin Globulin Ratio 0.8 (0.9-2); Alkaline Phosphatase 56 U/L (45-117); Bilirubin,Total 0.2 mg/dl (0.2-1); Globulin 3.4 gm/dl (2.5-4.0); Total Protein 6.1 gm/dl (6.4-8.2); Troponin I < 0.015 ng/ml (0-0.045)
--- NOTE | 2020-09-27 08:05 | CT Scan Report ---
CT angio neck with con CLINICAL HISTORY: Stroke Like Symptoms COMPARISON STUDY: No previous studies for comparison. TECHNIQUE: CT angiography was performed from the aortic arch to the skull base. MIP imaging was perfo rmed. The patient was scanned in a dynamic helical fashion during intravenous administration of 120 c c of Optiray 320. A dose lowering technique was utilized adhering to the principles of ALARA. CT DOSE: 1134.22 mGy.cm Technique: CT angiogram of the carotid and vertebral arteries was obtained using intravenous contrast and 3-D reconstruction. NASCET criteria was utilized. Findings: There are atheromatous changes the level the right carotid bulb without evidence of a hemodynamically significant stenosis. There is narrowing of the right internal carotid at the level of the skull bas e, possibly secondary to a dissection. There are moderate atheromatous changes the level left carotid bulb without evidence of a hemodynamic ally significant stenosis. Atheromatous changes are also present at the origin left internal carotid artery without evidence of hemodynamically significant stenosis. There is no evidence of hemodynamically significant vertebral stenosis. There is no evidence of verte bral dissection. IMPRESSION: 1. Narrowing of the right internal carotid artery at the level of the skull base, possibly secondary to a dissection ACT 112: Negative or not required by law. Electronically signed by: Paulino Quintanilla M.D. 09/27/2020 8:04 AM
--- NOTE | 2020-09-27 08:12 | CT Scan Report ---
CT angio head w con CLINICAL HISTORY: Stroke Like Symptoms TECHNIQUE: CT angiography of the head was performed in a dynamic helical fashion during intravenous a dministration of 120 cc of Optiray 320. MIP imaging was performed. A dose lowering technique was util ized adhering to the principles of ALARA. CT DOSE: COMPARISON STUDY: No previous studies for comparison. FINDINGS: There are no lesion suspicious for aneurysm. The dural venous sinuses appear patent. There is no evidence for major intracranial branch occlusion. There is narrowing of the right internal [place] artery at the level of the carotid canal. The configuration raises the possibility of a focal dis section. IMPRESSION: 1. 75% diameter narrowing of the right internal carotid artery at the level of the carotid canal. The linear configuration of this stenosis raises the possibility of a focal dissection. ACT 112: Negative or not required by law. Electronically signed by: Paulino Quintanilla M.D. 09/27/2020 8:10 AM
[2020-09-27] MEDS ORDERED: Heparin IV Adult Wt-Based Standard *NO* Bolus Protocol IV ONE (08:15)
[2020-09-27] MEDS ORDERED: HEPARIN SODIUM/DEXTROSE 25,000 UNITS/500 ML BAG IV SCH (08:15)
--- NOTE | 2020-09-27 08:19 | XRay Report ---
XR chest 1V portable CLINICAL HISTORY: Stroke Like Symptoms COMPARISON STUDY: 07/11/2019 FINDINGS: There are postsurgical changes of a midline sternotomy. An opaque somewhat triangular densi ty projected over the mid thoracic spine may be extraneous to the patient. There is slight interstiti al prominence but no evidence of overt failure. There is no lobar consolidation. There are no pleural effusions.[ IMPRESSION: 1. Slight interstitial prominence, but no evidence of overt failure 2. No evidence of focal pulmonary consolidation 3. Triangular opaque density projected over the mid thoracic spine possibly extraneous to the patient ACT 112: Negative or not required by law. Electronically signed by: Paulino Quintanilla M.D. 09/27/2020 8:18 AM
--- NOTE | 2020-09-27 09:43 | History & Physical Report ---
Date of Service September 27, 2020 Assessment & Plan (1) CVA (cerebral vascular accident): Almost certainly a right-sided CVA. CTA head/neck on 09/27 showed no major vessel occlusion, but did show a possible right carotid artery dissection. - MRI brain pending -> Per ED physician, discussed with Dr. Diamond to get good slices of right carotid. - TTE, A1c, lipids all ordered (per patient, she has a "hole" in her heart; possibly a PFO) - Neurology consulted (2) CAD (coronary artery disease): S/p stents and 3vCABG in 2014. No chest pain or indication of acute cardiac ischemia. - Continue ASA, Plavix, beta-hilaria, ACEi, statin, fenofibrate, ezetimibe - Usually takes her Praluent on Sundays (due tomorrow, 09/28). Will hold for now, but brother could bring it in if needed (3) Chronic diastolic heart failure: Not sure if she has diastolic failure (just reported in chart). Reports she takes Lasix 20 - 40 mg daily (1 - 2 tablets per patient's discretion). - Presently NOT in acute CHF exacerbation - Continue home Lasix at 20 mg PO daily, but can titrate as needed (4) PVD (peripheral vascular disease): S/p peripheral stents about 2 years ago (ie 2018) with Dr. Shrestha at [facility] in [place]. No indication of acute limb ischemia. - Continue above meds (5) DMII (diabetes mellitus, type 2): No known A1c, but has very high insulin needs. - Glycemic pharmacy consulted given her high needs. - A1c in the AM - Continue gabapentin (6) COPD (chronic obstructive pulmonary disease): Unknown stage/severity. No present shortness of breath. - Continue home maintenance inhalers (or formulary equivalent) - DuoNebs PRN (7) Tobacco abuse: Still smoking ~5-6 cigarettes per day. - Nicotine patch - Cessation advised (8) DVT prophylaxis: Lovenox 45 mg SQ daily (weight-based dosing) History of Present Illness Primary Care Provider: Jose Torres 65yo F w/ hx of CAD, CVA, PAD, and tobacco use who presents as a likely CVA. Went to bed in her normal state of health, but woke up around 4am. She attempted to get out of bed, but her left side felt heavy and she fell on the ground. At the time, she thought maybe her left side was just "asleep." She was able to get back to bed and waited until about 5:30am to report her left-sided weakness to her brother. She was then brought to the ED. She reports her left arm is slightly more "light" at this point and has better motion. Her left leg remains fairly stable and is mostly weak in the proximal muscles. The CTA of her neck showed a possible dissection on the right carotid artery. She denies any neck pain, neck swelling, trouble with speech or swallow, vision changes, headache, chest pain, vomiting, shortness of breath, or other symptoms. Allergies Allergy/AdvReac Type Severity Reaction Status Date / Time No Known Allergies Allergy Unverified 09/27/20 10:17 Home Medications Medication Instructions Recorded Confirmed Type Fenofibrate Tab 145 mg PO DAILY 07/09/19 09/27/20 History Jardiance 10 mg PO DAILY 07/09/19 09/27/20 History Levemir FlexTouch U-100 Insuln 40 unit SUBCUT QPM 07/09/19 09/27/20 History Levemir FlexTouch U-100 Insuln 47 unit SUBCUT QAM 07/09/19 09/27/20 History Praluent Pen 75 mg SUBCUT .Q14 DAYS 07/09/19 09/27/20 History Trulicity 1.5 mg SUBCUT WK 07/09/19 09/27/20 History albuterol sulfate 2.5 mg INHALATION Q4 PRN 07/09/19 09/27/20 History albuterol sulfate [Ventolin HFA] 2 puff INHALATION Q4 PRN 07/09/19 09/27/20 History ascorbic acid (vitamin C) [Vitamin 500 mg PO DAILY 07/09/19 09/27/20 History C] aspirin [Aspir-81] 81 mg PO DAILY 07/09/19 09/27/20 History atorvastatin 80 mg PO HS 07/09/19 09/27/20 History bupropion HCl [Wellbutrin XL] 300 mg PO QAM 07/09/19 09/27/20 History cholecalciferol (vitamin D3) 1,000 unit PO DAILY 07/09/19 09/27/20 History [Vitamin D3] citalopram [Celexa] 40 mg PO BID 07/09/19 09/27/20 History clopidogrel [Plavix] 75 mg PO DAILY 07/09/19 09/27/20 History ergocalciferol (vitamin D2) 1,250 mcg PO WK 07/09/19 09/27/20 History [Vitamin D2] ezetimibe [Zetia] 10 mg PO DAILY 07/09/19 09/27/20 History fluticasone propion-salmeterol 1 inh INHALATION Q12H 07/09/19 09/27/20 History [Advair Diskus] furosemide [Lasix] 20 mg PO DAILY 07/09/19 09/27/20 History gabapentin 300 mg PO TID 07/09/19 09/27/20 History hydrocodone-acetaminophen [Marquez] 2 tab PO Q6H PRN 07/09/19 09/27/20 History insulin aspart U-100 [Novolog 17 unit SUBCUT TIDM 07/09/19 09/27/20 History U-100 Insulin aspart] lisinopril 5 mg PO DAILY 07/09/19 09/27/20 History loratadine [Claritin] 10 mg PO DAILY 07/09/19 09/27/20 History magnesium oxide 400 mg PO DAILY 07/09/19 09/27/20 History meclizine 25 mg PO TID PRN 07/09/19 09/27/20 History metformin 500 mg PO BID 07/09/19 09/27/20 History metoprolol succinate [Toprol XL] 50 mg PO DAILY 07/09/19 09/27/20 History nystatin [Nystop] 1 applic TOPICAL BID 07/09/19 09/27/20 History omeprazole 40 mg PO DAILY 07/09/19 09/27/20 History trazodone 150 mg PO HS 07/09/19 09/27/20 History vitamin A 10,000 unit PO DAILY 07/09/19 09/27/20 History Spiriva with HandiHaler 1 cap INHALATION DAILY 07/10/19 09/27/20 History bupropion HCl [Wellbutrin XL] 150 mg PO DAILY 07/10/19 09/27/20 History Past Med/Surg History Medical History CAD (coronary artery disease) Chronic diastolic heart failure COPD (chronic obstructive pulmonary disease) Depression DMII (diabetes mellitus, type 2) PVD (peripheral vascular disease) Tobacco abuse Surgical History S/P arterial stent Approx. [address] Shrestha at [facility] S/P CABG x 3 2014 Family History Father Myocardial infarction Other No significant family history Social History Smoking Status: Current every day smoker Cigarettes Per Day: 5-6; Second Hand Exposure: No; Do You Dip or Chew Tobacco: No; Tobacco Cessation Education Requested by Patient: No Hx Alcohol Use: Yes Hx Substance Use: No Preferred Language: Wolof Communication Ability: Effective Acid Bath Mixer Required: No Beliefs That Will Affect Care: None marital status: Current Living Situation: Family Current Living Situation Comment: Patient lives with her Brother and DELFIN Feels Safe at Home: Yes Safety Concerns: Feels Safe At This Time Assistive Devices: Glasses Review of Systems Review of Systems: All systems reviewed & are unremarkable except as noted in HPI & below Physical Exam Constitutional: WD/WN, vitals as above Eyes: EOM intact bilaterally; no conjunctival abnormality ENMT: external ear and nose normal, oropharynx normal Neck: trachea midline, no thyromegaly normal visual inspection Respiratory: normal respiratory effort, lungs clear to auscultation no respiratory distress Cardiovascular: RRR, no murmur, no edema Gastrointestinal (Abdomen): Inspection/Auscultation: abdomen normal to inspection; abdomen not distended Skin: no rashes, warm and dry Neurologic: moves all extremities and awake Motor/Sensory: + abnormal movement (Proximal weakness of left arm and leg) Psychiatric: Orientation: alert, oriented to person and cooperative Results & Data Results & Data ([facility]) Vital Signs (Past 12 Hours) Vital Signs Temp Pulse Resp BP Pulse Ox 09/27/20 08:45 76 26 H 154/85 H 95 09/27/20 08:31 78 23 140/65 95 09/27/20 08:15 80 25 H 138/80 95 09/27/20 08:00 79 23 145/67 H 96 09/27/20 07:56 82 22 153/76 H 95 09/27/20 07:30 158/79 H 94 09/27/20 07:16 146/85 H 95 09/27/20 07:10 37.4 C 81 21 156/75 H 95 Code Status & VTE Plan VTE Prophylaxis Plan VTE Prophylaxis will be ordered: Yes PG Care Time/CCT Total # of Minutes Spent Total Time Spent with Patient: Total time spent is greater than 50% in coordination of care (as documented) at patient's floor/unit and/or counseling patient: Coding Level of Care Code 02947 Initial Inpt Care Lvl 3 Diagnoses CVA (cerebral vascular accident) I63.9 CAD (coronary artery disease) I25.10 Chronic diastolic heart failure I50.32 PVD (peripheral vascular disease) I73.9 DMII (diabetes mellitus, type 2) E11.9 COPD (chronic obstructive pulmonary disease) J44.9 Tobacco abuse Z72.0 DVT prophylaxis Z29.9
[2020-09-27 09:48] LABS: Influenza A virus by PCR Negative (Neg); Influenza B virus by PCR Negative (Neg); RSV by PCR Negative (Neg); SARS CoV2 RNA(COVID-19) InHosp NEGATIVE (Negative)
[2020-09-27] MEDS ORDERED: GADOBUTROL 65ML VIAL IV ONE (10:06)
--- NOTE | 2020-09-27 10:14 | Electrocardiogram Report ---
Test Reason : Blood Pressure : / mmHG Vent. Rate : 079 BPM Atrial Rate : 079 BPM P-R Int : 144 ms QRS Dur : 080 ms QT Int : 390 ms P-R-T Axes : 064 082 100 degrees QTc Int : 447 ms Normal sinus rhythm Left atrial enlargement Old Anteroseptal infarct (cited on or before 09-JUL-2019) Abnormal ECG When compared with ECG of 09-JUL-2019 21:18, No significant change was found Confirmed by Aaron Walker ([id number]) on 09/27/2020 10:13:52 AM Referred By: REFERRED SELF Confirmed By:Aaron Walker
[2020-09-27] MEDS ORDERED: ASPIRIN CHEW 324 MG PO STA (10:25)
--- NOTE | 2020-09-27 11:16 | Magnetic Resonance Report ---
MRI OF THE BRAIN WITHOUT AND WITH IV CONTRAST CLINICAL HISTORY: Left-sided weakness. Possible acute stroke. COMPARISON STUDY: Noncontrast head CT dated 09/27/2020, CT angiography the brain dated 09/27/2020 TECHNIQUE: MRI of the brain was performed from the vertex to the skull base utilizing various T1 and T2 weighted sequences. Following the IV administration of 8.5 mL of Gadavist contrast, additional enh anced images were obtained. FINDINGS: Sagittal T1, axial diffusion, proton density and T2 weighted axial, coronal FLAIR, and pre and post a xial T1-weighted images were acquired. These were supplemented with post gadolinium coronal T1 weight ed images. No intra or extra-axial mass lesions are visualized. There is a 6 mm focus of restricted water diffusion within the right periventricular deep white matte r consistent with acute/subacute infarct. There is an equivocal second 4 mm focus within the right ba alicia ganglia. There is no evidence of ventricular dilatation. Proton density T2-weighted and FLAIR images reveal extensive foci of increased T2 signal within the w felix matter, likely on a small vessel basis. There are old scattered lacunar infarcts. There are foci of increased T2 signal within the mastoids consistent with an inflammatory etiology. There is no evidence of pathologic enhancement. Thin section images were obtained through the skull base to evaluate the right internal carotid at th e level the carotid canal. Images confirm the presence of carotid narrowing at this level. Unfortunat hermes images are degraded by motion artifact. The findings again favor a focal dissection, although ecc entric focal atherosclerotic narrowing could potentially appear similar. IMPRESSION: 1. Acute/subacute 6 mm infarct in the right parietal periventricular deep white matter. Potential sec ond smaller focus of acute sinusitis of acute infarction within the right basal ganglia 2. Stenosis of the right internal carotid artery at the level of the carotid canal. A focal dissectio n is favored over eccentric focal atherosclerotic narrowing 3. Moderate diffuse white matter disease with old lacunar infarcts likely a small vessel basis 4. Foci of increased T2 signal within the mastoid likely inflammatory ACT 112: Negative or not required by law. Electronically signed by: Paulino Quintanilla M.D. 09/27/2020 11:14 AM
[2020-09-27] MEDS ORDERED: ALBUT/IPRATROP 3MG/0.5MG NEB 3 ML VIAL NEB PRN (11:34)
[2020-09-27] MEDS ORDERED: GLUCOSE 10 TABS/TUBE PO PRN (11:34)
[2020-09-27] MEDS ORDERED: GLUCOSE 40% GEL 15 GM TUBE PO PRN (11:34)
[2020-09-27] MEDS ORDERED: GLUCAGON FOR INJ 1 MG VIAL SQ PRN (11:34)
[2020-09-27] MEDS ORDERED: ACETAMINOPHEN 325 MG TAB PO PRN (11:34)
[2020-09-27] MEDS ORDERED: HYDROCODONE/ACETAMOPHEN 5/325MG TAB PO PRN (11:34)
[2020-09-27] MEDS ORDERED: ONDANSETRON INJ 2 MG/ML 2 ML VIAL IV PRN (11:34)
[2020-09-27] MEDS ORDERED: CARBOHYDRATES FOR HYPOGLYCEMIA PO PRN (11:34)
[2020-09-27] MEDS ORDERED: DEXTROSE 50% 50 ML SYRINGE IV PRN (11:34)
[2020-09-27] MEDS ORDERED: PHARMACY GLYCEMIC MGMT CONSULT PRN (11:44)
[2020-09-27] MEDS ORDERED: INSULIN DETEMIR FLEXPEN/FLEX TOUCH 100 UNITS/ML 3ML SC ONE (12:30)
[2020-09-27] MEDS: NICOTINE 7 MG/24 HR TDSY TD SCH (13:07)
[2020-09-27] MEDS: INSULIN ASPART 100 UNITS/ML 3 ML PEN SC SCH ×3 (13:10→20:17)
[2020-09-27] MEDS: GABAPENTIN 300 MG CAP PO SCH ×2 (13:11→20:37)
[2020-09-27] MEDS: FLUTICASONE/VILANTEROL 100/25MCG 14 PUFFS/INHALER INH SCH (13:11)
--- NOTE | 2020-09-27 14:37 | Pharmacy Report ---
Pharmacy Glycemic Short Note 2 - Date of Service September 27, 2020 - Glycemic Short BSG Results (Last 24 hours): 09/27/20 09/27/20 09/27/20 07:26 07:32 11:18 Glucose 201 H POC Glucose 173 H POC Glucose (other) 203 H OUTPATIENT ANTIDIABETIC REGIMEN: * Levemir 47 units SQ QAM, 40 units SQ QPM * Novolog 17 units TIDM * Empagliflozin 10 mg PO daily * Dulaglutide 1.5 mg SQ weekly * Metformin 500 mg PO BID ASSESSMENT: * 65 y/o F admitted with CVA. Patient with PMH significant for Type 2 diabetes managed at home with five different anti-diabetic meds including two insulins (basal and prandial). * Holding oral agents and SQ Dulaglutide while admitted. * Oral agents are not recommended for inpatient use d/t drug interactions, changing PO intake, and difficulty titrating for acute hyper/hypoglycemia. ADA recommends re-initiating outpatient oral agents 1-2 days prior to discharge if/when appropriate if they were held on admission. * Will utilize SQ basal bolus insulin regimen which is the recommended regimen for inpatient glycemic control. Will use Levemir as basal agent since patient also uses this at home. * Levemir dose was ordered at noon today- 25% reduced from patient's home dose. HS dose also ordered based on BSG scale. Will titrate/adjust doses per BSG trends. * Novolog CF and CR coverage ordered based on wt and stress factor tighter than 3. Used patient's past admission data to determine this. PLAN FOR INPATIENT GLYCEMIC CONTROL: * Hold outpatient oral diabetes medications * Basal insulin * Levemir 35 units SQ at noon today. * Levemir 10-20 units SQ at HS ordered today based on BSG scale. * Bolus insulin * NovoLog per scale ACHS or Q6hrs while NPO * Goal Range: Low 110 mg/dL - High 140 mg/dL * Correction Factor: 15 mg/dL/unit * Nutritional / Prandial insulin per carb ratio of 1 unit per 5 grams CHO consumed PLAN FOR DISCHARGE: * TBD
[2020-09-27] MEDS: INSULIN DETEMIR FLEXPEN/FLEX TOUCH 100 UNITS/ML 3ML SC SCH (20:34)
[2020-09-27] MEDS: traZODone HCL 50 MG TAB PO SCH (20:36)
[2020-09-27] MEDS: CLOPIDOGREL BISULFATE 75 MG TAB PO SCH (20:37)
[2020-09-27] MEDS: ASPIRIN 81 MG ECTAB PO SCH (20:37)
[2020-09-27] MEDS: ATORVASTATIN 40 MG TAB PO SCH (20:37)
[2020-09-27] MEDS: CITALOPRAM 40 MG TAB PO SCH (20:37)
[2020-09-28] MEDS: INSULIN ASPART 100 UNITS/ML 3 ML PEN SC SCH ×6 (00:15→20:39)
[2020-09-28 06:44] LABS: Hematocrit (blood only) 45.2 % (37-47); Hemoglobin 15.7 g/dL (12.0-16.0); Mean Corpuscular Hemoglobin 29.8 pg (25-34); Mean Corpuscular Hgb Conc 34.7 g/dL (32-36); Mean Corpuscular Volume 85.8 fL (80-100); Mean Platelet Volume 9.5 fL (7.4-10.4); Platelet Count 199 K/uL (130-400); RDW Standard Deviation 43.7 fL (36.4-46.3); Red Blood Count 5.27 M/uL (4.2-5.4)
[2020-09-28 07:11] LABS: Albumin Level 2.7 gm/dl (3.4-5.0); BUN Creatinine Ratio 20.1 (10-20); Calcium 8.7 mg/dl (8.5-10.1); Creatinine Clr Calc Pharmacy 42.6 ml/min; Est GFR (Non-African American) 46.6; Potassium 3.8 mmol/L (3.5-5.1)
[2020-09-28 07:15] LABS: Albumin Globulin Ratio 0.7 (0.9-2); Bilirubin,Total 0.4 mg/dl (0.2-1); Total Protein 6.7 gm/dl (6.4-8.2)
[2020-09-28] MEDS: GABAPENTIN 300 MG CAP PO SCH ×3 (08:22→20:38)
[2020-09-28] MEDS: buPROPion XL 150 MG TABCR PO SCH (08:22)
[2020-09-28] MEDS: FUROSEMIDE 20 MG TAB PO SCH (08:23)
[2020-09-28] MEDS: lisinopril 5 MG TAB PO SCH (08:23)
[2020-09-28] MEDS: METOPROLOL SUCC 50MG EXT REL TAB PO SCH (08:23)
[2020-09-28] MEDS: FENOFIBRATE NANOCRYSTALLIZED 145 MG TABLET PO SCH (08:24)
[2020-09-28] MEDS: EZETIMIBE 10 MG TABLET PO SCH (08:24)
[2020-09-28] MEDS: NICOTINE 7 MG/24 HR TDSY TD SCH (08:25)
[2020-09-28] MEDS: INSULIN DETEMIR FLEXPEN/FLEX TOUCH 100 UNITS/ML 3ML SC SCH ×2 (08:26→20:39)
[2020-09-28] MEDS: UMECLIDINIUM BROMIDE 62.5MCG/BLISTER 7 PUFFS/INHALER INH SCH (08:27)
[2020-09-28] MEDS: FLUTICASONE/VILANTEROL 100/25MCG 14 PUFFS/INHALER INH SCH (08:27)
--- NOTE | 2020-09-28 08:29 | XCELERA ---
[id number]
[2020-09-28] MEDS ORDERED: ENOXAPARIN INJ 60 MG/0.6 ML SYR SQ SCH (09:00)
[2020-09-28] MEDS ORDERED: ENOXAPARIN 0.5 MG/KG SQ SCH (09:00)
--- NOTE | 2020-09-28 09:55 | Neurology Consultation ---
Date of Consultation September 28, 2020 Assessment & Plan (1) CVA (cerebral vascular accident): (2) Dissection of carotid artery: This patient has had 2 small acute deep right hemispheric infarcts occurring in the context of a probable focal dissection of the right internal carotid artery at the skull base, within the carotid canal. This focal dissection would be spontaneous, and occurs without a history of specific injury, fall, lifting, retching, etc. The associated stenosis is estimated at 75%. This event occurs while the patient is already on high-dose atorvastatin, and dual antiplatelet therapy with daily low-dose aspirin and clopidogrel. Other stroke risk factors for this patient include cigarette smoking and insulin-dependent diabetes mellitus. There is no clearly defined role for surgical intervention for carotid dissection, especially for lesions at the skull base, within the carotid canal. Stenting could be considered on a [id number] basis but would not be completed at [facility]. Yet, this patient is neurologically stable and the degree of associated stenosis is estimated at 75%. Therefore, it is doubtful that surgical intervention/stenting would be recommended in her case. Outpatient consultation with a neurovascular specialist at a tertiary center would be reasonable. Otherwise, patient should continue with her current antiplatelet and statin regimen. Should also continue with her current antihypertensive regimen. Smoking cessation will need to be continuously stressed with this patient. She will likely need some continued PT/OT to address her moderate left lower extremity weakness. No further immediate recommendations. History of Present Illness Reason for Consultation: Stroke, carotid dissection Requesting Physician: Ortiz Samuel Attending Physician: Ortiz Samuel MD History of Present Illness The patient is a 65-year old female who presented to the emergency department yesterday morning with a chief complaint of left-sided weakness noted upon awakening at around 4 AM. Last known well prior to going to bed, previous evening. Complains of a feeling of heaviness affecting the left arm and leg although the arm is significantly improved this morning. Has been having some persistent difficulty with ambulation. Complains of low-grade associated headache. No vision disturbance or change in speech. Has undergone thorough neuro imaging including CT angiography of the head and neck and brain MRI and has been diagnosed with an acute right parietal periventricular deep white matter infarct and small acute infarct within the right basal ganglia, occurring in the context of a probable right internal carotid artery dissection at the level of the carotid canal. Imaging described in further detail below. The patient denies any significant neck pain. She denies any recent fall or injury. Denies any recent heavy lifting, coughing, retching or straining. As above, her neurologic symptoms have been stable to improved. Allergies Allergy/AdvReac Type Severity Reaction Status Date / Time No Known Allergies Allergy Unverified 09/27/20 10:17 Home Medications Medication Instructions Recorded Confirmed Type Fenofibrate Tab 145 mg PO DAILY 07/09/19 09/27/20 History Jardiance 10 mg PO DAILY 07/09/19 09/27/20 History Levemir FlexTouch U-100 Insuln 40 unit SUBCUT QPM 07/09/19 09/27/20 History Levemir FlexTouch U-100 Insuln 47 unit SUBCUT QAM 07/09/19 09/27/20 History Praluent Pen 75 mg SUBCUT .Q14 DAYS 07/09/19 09/27/20 History Trulicity 1.5 mg SUBCUT WK 07/09/19 09/27/20 History albuterol sulfate 2.5 mg INHALATION Q4 PRN 07/09/19 09/27/20 History albuterol sulfate [Ventolin HFA] 2 puff INHALATION Q4 PRN 07/09/19 09/27/20 His tory ascorbic acid (vitamin C) [Vitamin 500 mg PO DAILY 07/09/19 09/27/20 History C] aspirin [Aspir-81] 81 mg PO DAILY 07/09/19 09/27/20 History atorvastatin 80 mg PO HS 07/09/19 09/27/20 History bupropion HCl [Wellbutrin XL] 300 mg PO QAM 07/09/19 09/27/20 History cholecalciferol (vitamin D3) 1,000 unit PO DAILY 07/09/19 09/27/20 History [Vitamin D3] citalopram [Celexa] 40 mg PO BID 07/09/19 09/27/20 History clopidogrel [Plavix] 75 mg PO DAILY 07/09/19 09/27/20 History ergocalciferol (vitamin D2) 1,250 mcg PO WK 07/09/19 09/27/20 History [Vitamin D2] ezetimibe [Zetia] 10 mg PO DAILY 07/09/19 09/27/20 History fluticasone propion-salmeterol 1 inh INHALATION Q12H 07/09/19 09/27/20 History [Advair Diskus] furosemide [Lasix] 20 mg PO DAILY 07/09/19 09/27/20 History gabapentin 300 mg PO TID 07/09/19 09/27/20 History hydrocodone-acetaminophen [Bennett] 2 tab PO Q6H PRN 07/09/19 09/27/20 History insulin aspart U-100 [Novolog 17 unit SUBCUT TIDM 07/09/19 09/27/20 History U-100 Insulin aspart] lisinopril 5 mg PO DAILY 07/09/19 09/27/20 History loratadine [Claritin] 10 mg PO DAILY 07/09/19 09/27/20 History magnesium oxide 400 mg PO DAILY 07/09/19 09/27/20 History meclizine 25 mg PO TID PRN 07/09/19 09/27/20 History metformin 500 mg PO BID 07/09/19 09/27/20 History metoprolol succinate [Toprol XL] 50 mg PO DAILY 07/09/19 09/27/20 History nystatin [Nystop] 1 applic TOPICAL BID 07/09/19 09/27/20 History omeprazole 40 mg PO DAILY 07/09/19 09/27/20 History trazodone 150 mg PO HS 07/09/19 09/27/20 History vitamin A 10,000 unit PO DAILY 07/09/19 09/27/20 History Spiriva with HandiHaler 1 cap INHALATION DAILY 07/10/19 09/27/20 History bupropion HCl [Wellbutrin XL] 150 mg PO DAILY 07/10/19 09/27/20 History Patient History Medical History CAD (coronary artery disease) Chronic diastolic heart failure COPD (chronic obstructive pulmonary disease) Depression DMII (diabetes mellitus, type 2) PVD (peripheral vascular disease) Tobacco abuse Surgical History S/P arterial stent Approx. [address] 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 Beliefs That Will Affect Care: None marital status: Current Living Situation: Family Current Living Situation Comment: Patient lives with her Brother and DELFIN Feels Safe at Home: Yes Safety Concerns: Feels Safe At This Time Assistive Devices: Glasses Review of Systems Constitutional: no fever and no chills Eyes: no blind spots and no diplopia Ear, Nose, Mouth, Throat: no hearing loss Respiratory: no cough and no dyspnea Cardiovascular: no chest pain and no palpitations Gastrointestinal: no nausea and no vomiting Genitourinary: no dysuria Musculoskeletal: no neck pain and no myalgia Integumentary: no rash and no lesions Neurologic: as per Subjective / HPI, + gait abnormality, + localized weakness and + headache(s); no memory loss Psychiatric: no depression and no anxiety Hematologic / Lymphatic: no easy bleeding and no easy bruising Exam (Neuro) Constitutional: well developed and well nourished; no acute distress Eyes: normal visual mckenzie by confrontation, PERRL, normal accommodation and EOM intact bilaterally; no fundoscopic abnormality, no nystagmus and no papilledema Cardiovascular: Vessels: normal carotid upstroke; no carotid bruit Neurologic: Oriented to:: Person, Place and Time Memory: Short Term Intact and Remote Intact Attention: Span Intact and Concentration Intact Language: Naming Objects and Repeating Phrases Speech Fluency: negative Dysarthria Speech Aphasia: negative Aphasia Fund of Knowledge: Current Events, Past History and Vocabulary Cranial Nerves: Normal II (Visual mckenzie full to confrontation, visual acuity normal), III, IV, (Pupils equal round reactive to light and accommodation, eye movements normal), V (Facial sensation intact), VIII (Hearing intact), IX, X (Palate elevates to midline), XI (Shoulder shrug intact) and XII (Tongue protrudes to midline); Abnorm VII (There is mild left lower facial weakness or lag with smile.) Motor Strength: Pronator Drift Laterality: Left and Hemiparesis (Mild left hemiparesis, leg greater than arm. Able to lift the left leg out of the bed against gravity and against some resistance, 4 out of 5 strength.) Laterality: Left; negative Normal Lower Extremities and Normal Upper Extremities Motor Tone: Normal Lower Extremities and Normal Upper Extremities Muscle Bulk/Involuntary Movements: No Involuntary Movements; negative Muscle Atrophy Sensation: Light Touch Intact, Pain/Temperature Intact and Vibration Intact; negative Proprioception Intact (Had some relative impairment to proprioception of the left toes.) Coordination: Normal, Finger-Nose Abnormal Laterality: Left and Heel-Isaac Abnormal Laterality: Left; negative Limited Balance and Dysdiadochokinesia Deep Tendon Reflexes: Rt Triceps: 2+, Lt Triceps: 2+, Rt Biceps: 2+, Lt Biceps: 3+, Rt Brachioradialis: 2+, Lt Brachioradialis: 2+, Rt Patellar: 2+, Lt Patellar: 3+, Rt Ankle: 2+ and Lt Ankle: 2+ Special Tests: Babinski Present (Left) Gait: Hemiparetic Laterality: Left Results & Data ([facility]) Vital Signs (Past 12 Hours) Vital Signs Temp Pulse Pulse Resp BP Pulse Ox 09/28/20 08:19 36.6 C 81 19 160/82 H 92 09/28/20 07:34 86 09/28/20 06:54 85 09/28/20 03:12 36.9 C 94 H 18 131/75 92 09/27/20 23:06 36.6 C 89 18 167/83 H 91 Laboratory Results WBC 8.50, hemoglobin 15.7, hematocrit 45.2, platelet count 199, sodium 141, potassium 3.8, BUN 24, creatinine 1.21, glucose 136, magnesium 2.0, triglycerides 602, cholesterol 317, HDL [address] of the head negative for hemorrhage or acute process. There is a chronic left basal ganglia infarct. CTA of the head and neck reveals a 75% diameter narrowing of the right internal carotid artery at the level of the carotid canal consistent with focal dissection. MRI of the brain reveals an acute to subacute 6 mm infarct in the right parietal periventricular deep white matter with a second smaller acute ischemic focus within the right basal ganglia. The focal right internal carotid artery dissection within the carotid canal is again seen. There is moderate diffuse small vessel ischemic disease and old lacunar infarcts. These findings were observed by the interpreting radiologist. I reviewed the images as well and agree. Echocardiogram today negative for anterior atrial shunt. Normal left ventricular systolic function, ejection fraction 55 to 60%, no regional wall motion abnormalities. Left atrium borderline dilated, right atrial size normal. Electrocardiogram reveals a normal sinus rhythm, left atrial enlargement, 79 bpm. Coding Level of Care Code 38649 Initial In Care Lvl 3 Diagnoses CVA (cerebral vascular accident) I63.9 CVA mechanism: unspecified Dissection of carotid artery I77.71 (1) CVA (cerebral vascular accident) CVA mechanism: unspecified Qualified Code(s): I63.9 - Cerebral infarction, unspecified
--- NOTE | 2020-09-28 14:17 | Pharmacy Report ---
Pharmacy Glycemic Short Note 2 - Date of Service September 28, 2020 - Glycemic Short BSG Results (Last 24 hours): 09/27/20 09/27/20 09/28/20 16:32 20:11 00:00 Glucose POC Glucose 118 H 103 H 98 09/28/20 09/28/20 09/28/20 04:56 06:21 07:55 Glucose 136 H POC Glucose 207 H 117 H 09/28/20 11:41 Glucose POC Glucose 141 H OUTPATIENT ANTIDIABETIC REGIMEN: * Levemir 47 units SQ QAM, 40 units SQ QPM * Novolog 17 units TIDM * Empagliflozin 10 mg PO daily * Dulaglutide 1.5 mg SQ weekly * Metformin 500 mg PO BID ASSESSMENT: 09/28/20: * Patient received total of 67 units of insulin yesterday: 45 units basal and 22 units bolus. * Fasting BSG today was 117 mg/dl. Reduced basal dose slightly this AM compared to yesterday. Continued HS basal dose based on BSG scale. * Post-prandial BSGs within goal yesterday. Continued Novolog parameters. 09/27/20: * 65 y/o F admitted with CVA. Patient with PMH significant for Type 2 diabetes managed at home with five different anti-diabetic meds including two insulins (basal and prandial). * Holding oral agents and SQ Dulaglutide while admitted. * Oral agents are not recommended for inpatient use d/t drug interactions, changing PO intake, and difficulty titrating for acute hyper/hypoglycemia. ADA recommends re-initiating outpatient oral agents 1-2 days prior to discharge if/when appropriate if they were held on admission. * Will utilize SQ basal bolus insulin regimen which is the recommended regimen for inpatient glycemic control. Will use Levemir as basal agent since patient also uses this at home. * Levemir dose was ordered at noon today- 25% reduced from patient's home dose. HS dose also ordered based on BSG scale. Will titrate/adjust doses per BSG trends. * Novolog CF and CR coverage ordered based on wt and stress factor tighter than 3. Used patient's past admission data to determine this. PLAN FOR INPATIENT GLYCEMIC CONTROL: * Hold outpatient oral diabetes medications * Basal insulin * Levemir 30 units SQ QAM. * Levemir 10-20 units SQ at HS ordered today based on BSG scale. * Bolus insulin * NovoLog per scale ACHS or Q6hrs while NPO * Goal Range: Low 110 mg/dL - High 140 mg/dL * Correction Factor: 15 mg/dL/unit * Nutritional / Prandial insulin per carb ratio of 1 unit per 5 grams CHO consumed PLAN FOR DISCHARGE: * TBD
--- NOTE | 2020-09-28 14:31 | Hospitalist Progress Note ---
Date of Service September 28, 2020 Assessment & Plan (1) CVA (cerebral vascular accident): Almost certainly a right-sided CVA. CTA head/neck on 09/27 showed no major vessel occlusion, but did show a possible right carotid artery dissection. - MRI brain on 09/27 showed "Acute/subacute 6 mm infarct in the right parietal periventricular deep white matter. Potential second smaller focus of acute infarction within the right basal ganglia." - Also showed "stenosis of the right internal carotid artery at the level of the carotid canal" which is likely a dissection. - TTE on 09/28 showed LVEF 55 - 60%, moderate LVH, moderate aortic stenosis. - A1c: pending - Lipids: Chol: 317, HDL 53, LDL unable to assess, triglycerides 602. - Neurology consulted -> Recommend consideration of tertiary care neurovascular evaluation as outpatient and smoking cessation. (2) CAD (coronary artery disease): S/p stents and 3vCABG in 2014. No chest pain or indication of acute cardiac ischemia. - Continue ASA, Plavix, beta-hilaria, ACEi, statin, fenofibrate, ezetimibe - Usually takes her Praluent on Sundays (due tomorrow, 09/28). Will hold for now, but brother could bring it in if needed. (3) Chronic diastolic heart failure: Not sure if she has diastolic failure (just reported in chart). Reports she takes Lasix 20 - 40 mg daily (1 - 2 tablets per patient's discretion). - Presently NOT in acute CHF exacerbation - Continue home Lasix at 20 mg PO daily, but can titrate as needed. On 09/28, her standing weight was 82.8 kg which appears to be as low as usual and she has no swelling or other signs of hypervolemia. (4) PVD (peripheral vascular disease): S/p peripheral stents about 2 years ago (ie 2018) with Dr. Shrestha at [facility] in [place]. No indication of acute limb ischemia. - Continue above meds (5) DMII (diabetes mellitus, type 2): No known A1c, but has very high insulin needs. - Glycemic pharmacy consulted given her high needs. - A1c in the AM - Continue gabapentin (6) COPD (chronic obstructive pulmonary disease): Unknown stage/severity. No present shortness of breath. - Continue home maintenance inhalers (or formulary equivalent) - DuoNebs PRN (7) Tobacco abuse: Still smoking ~5-6 cigarettes per day. - Nicotine patch - Cessation advised (8) DVT prophylaxis: Lovenox 45 mg SQ daily (weight-based dosing) Admission and Anticipated Discharge Date Admission Date: September 27, 2020 Subjective Doing stably today. She report the left arm continues to improve and feel "health and wellness manager," but that the left leg is still "heavy." However, she is able to raise and lower it better today compared to yesterday. Reports no fevers/chills, chest pain, shortness of breath, abdominal pain, nausea, or vomiting. Physical Exam Constitutional: WD/WN, vitals as above Eyes: EOM intact bilaterally; no conjunctival abnormality ENMT: external ear and nose normal, oropharynx normal Neck: trachea midline, no thyromegaly normal visual inspection Respiratory: normal respiratory effort, lungs clear to auscultation no respiratory distress Cardiovascular: RRR, no murmur, no edema Gastrointestinal (Abdomen): Inspection/Auscultation: abdomen normal to inspection; abdomen not distended Skin: no rashes, warm and dry Neurologic: moves all extremities and awake Motor/Sensory: + abnormal movement (Proximal weakness of left arm and leg) Psychiatric: Orientation: alert, oriented to person and cooperative Results & Data Results & Data ([facility]) Vital Signs (Past 12 Hours) Vital Signs Temp Pulse Pulse Resp BP Pulse Ox 09/28/20 12:11 36.8 C 88 18 153/87 H 94 09/28/20 08:19 36.6 C 81 19 160/82 H 92 09/28/20 07:34 86 09/28/20 06:54 85 09/28/20 03:12 36.9 C 94 H 18 131/75 92 PG Care Time/CCT Total # of Minutes Spent Total Time Spent with Patient: Total time spent is greater than 50% in coordination of care (as documented) at patient's floor/unit and/or counseling patient: Coding Level of Care Code 64490 Subseq Hosp Care Lvl 3 Diagnoses CVA (cerebral vascular accident) I63.9 CVA mechanism: unspecified CAD (coronary artery disease) I25.10 Chronic diastolic heart failure I50.32 PVD (peripheral vascular disease) I73.9 DMII (diabetes mellitus, type 2) E11.9 COPD (chronic obstructive pulmonary disease) J44.9 Tobacco abuse Z72.0 DVT prophylaxis Z29.9 (1) CVA (cerebral vascular accident) CVA mechanism: unspecified Qualified Code(s): I63.9 - Cerebral infarction, unspecified
[2020-09-28] MEDS: CITALOPRAM 40 MG TAB PO SCH (20:37)
[2020-09-28] MEDS: ASPIRIN 81 MG ECTAB PO SCH (20:37)
[2020-09-28] MEDS: traZODone HCL 50 MG TAB PO SCH (20:37)
[2020-09-28] MEDS: ATORVASTATIN 40 MG TAB PO SCH (20:38)
[2020-09-28] MEDS: CLOPIDOGREL BISULFATE 75 MG TAB PO SCH (20:38)
[2020-09-29 06:32] LABS: Estimated Average Glucose 157 mg/dl; Hemoglobin A1C 7.1 % (4.5-5.6)
[2020-09-29 06:36] LABS: Hematocrit (blood only) 48.8 % (37-47); Hemoglobin 16.6 g/dL (12.0-16.0); Mean Corpuscular Hemoglobin 29.3 pg (25-34); Mean Corpuscular Volume 86.2 fL (80-100); Mean Platelet Volume 9.7 fL (7.4-10.4); Platelet Count 203 K/uL (130-400); RDW Coefficient of Variation 14.1 % (11.5-14.5); RDW Standard Deviation 43.7 fL (36.4-46.3); Red Blood Count 5.66 M/uL (4.2-5.4); White Blood Count 8.55 K/uL (4.8-10.8)
[2020-09-29 07:05] LABS: BUN Creatinine Ratio 21.6 (10-20); Calcium 8.8 mg/dl (8.5-10.1); Creatinine Clr Calc Pharmacy 44.3 ml/min; Est GFR (African American) 56.8; Magnesium 1.7 mg/dl (1.8-2.4); Potassium 4.1 mmol/L (3.5-5.1)
[2020-09-29] MEDS: INSULIN ASPART 100 UNITS/ML 3 ML PEN SC SCH ×3 (08:34→17:07)
[2020-09-29] MEDS: GABAPENTIN 300 MG CAP PO SCH ×2 (08:35→13:54)
[2020-09-29] MEDS: buPROPion XL 150 MG TABCR PO SCH (08:35)
[2020-09-29] MEDS: FUROSEMIDE 20 MG TAB PO SCH (08:35)
[2020-09-29] MEDS: FENOFIBRATE NANOCRYSTALLIZED 145 MG TABLET PO SCH (08:35)
[2020-09-29] MEDS: lisinopril 5 MG TAB PO SCH (08:35)
[2020-09-29] MEDS: INSULIN DETEMIR FLEXPEN/FLEX TOUCH 100 UNITS/ML 3ML SC SCH (08:36)
[2020-09-29] MEDS: METOPROLOL SUCC 50MG EXT REL TAB PO SCH (08:37)
[2020-09-29] MEDS: NICOTINE 7 MG/24 HR TDSY TD SCH (08:37)
[2020-09-29] MEDS: FLUTICASONE/VILANTEROL 100/25MCG 14 PUFFS/INHALER INH SCH (08:48)
[2020-09-29] MEDS: UMECLIDINIUM BROMIDE 62.5MCG/BLISTER 7 PUFFS/INHALER INH SCH (08:48)
[2020-09-29] MEDS ORDERED: ENOXAPARIN INJ 40 MG/0.4 ML SYR SQ SCH (09:00)
[2020-09-29] MEDS: EZETIMIBE 10 MG TABLET PO SCH (09:45)
--- NOTE | 2020-09-29 17:19 | Discharge Summary ---
Date of Service September 29, 2020 Admission HPI Per Admitting Provider 65yo F w/ hx of CAD, CVA, PAD, and tobacco use who presents as a likely CVA. Went to bed in her normal state of health, but woke up around 4am. She attempted to get out of bed, but her left side felt heavy and she fell on the ground. At the time, she thought maybe her left side was just "asleep." She was able to get back to bed and waited until about 5:30am to report her left-sided weakness to her brother. She was then brought to the ED. She reports her left arm is slightly more "light" at this point and has better motion. Her left leg remains fairly stable and is mostly weak in the proximal muscles. The CTA of her neck showed a possible dissection on the right carotid artery. She denies any neck pain, neck swelling, trouble with speech or swallow, vision changes, headache, chest pain, vomiting, shortness of breath, or other symptoms. Principal Diagnosis CVA Right carotid artery dissection Discharge Exam Constitutional WD/WN, vitals as above Eyes EOM intact bilaterally; no conjunctival abnormality ENMT external ear and nose normal, oropharynx normal Neck trachea midline, no thyromegaly normal visual inspection Respiratory normal respiratory effort, lungs clear to auscultation no respiratory distress Cardiovascular RRR, no murmur, no edema Gastrointestinal (Abdomen) Inspection/Auscultation: abdomen normal to inspection; abdomen not distended Skin no rashes, warm and dry Neurologic moves all extremities and awake Motor/Sensory: + abnormal movement (Proximal weakness of left arm and leg) Psychiatric Orientation: alert, oriented to person and cooperative Discharge Data Allergies Allergy/AdvReac Type Severity Reaction Status Date / Time No Known Allergies Allergy Unverified 09/27/20 10:17 Consultations 09/27/20 08:50 ED Decision to Admit Stat 09/27/20 11:34 Consult Neurology Routine Ordered Studies 09/27/20 06:49 CT angio head w con Stat CT angio neck with con Stat CT head/brain wo con Stat 09/27/20 07:26 MR brain wo/w con Stat Hospital Course (1) CVA (cerebral vascular accident): Almost certainly a right-sided CVA. CTA head/neck on 09/27 showed no major vessel occlusion, but did show a possible right carotid artery dissection. - MRI brain on 09/27 showed "Acute/subacute 6 mm infarct in the right parietal periventricular deep white matter. Potential second smaller focus of acute in farction within the right basal ganglia." - Also showed "stenosis of the right internal carotid artery at the level of the carotid canal" which is likely a dissection. - TTE on 09/28 showed LVEF 55 - 60%, moderate LVH, moderate aortic stenosis. - A1c: 7.1% - Lipids: Chol: 317, HDL 53, LDL unable to assess, triglycerides 602. - Neurology consulted -> Recommend consideration of tertiary care neurovascular evaluation as outpatient and smoking cessation. (2) CAD (coronary artery disease): S/p stents and 3vCABG in 2014. No chest pain or indication of acute cardiac ischemia. - Continue ASA, Plavix, beta-hilaria, ACEi, statin, fenofibrate, ezetimibe - Usually takes her Praluent on Sundays (due 09/28). Will hold for now; can restart at home. (3) Chronic diastolic heart failure: Not sure if she has diastolic failure (just reported in chart). Reports she takes Lasix 20 - 40 mg daily (1 - 2 tablets per patient's discretion). - Presently NOT in acute CHF exacerbation - Continue home Lasix at 20 mg PO daily, but can titrate as needed. On 09/28, her standing weight was 82.8 kg which appears to be as low as usual and she has no swelling or other signs of hypervolemia. (4) PVD (peripheral vascular disease): S/p peripheral stents about 2 years ago (ie 2018) with Dr. Shrestha at [facility] in [place]. No indication of acute limb ischemia. - Continue above meds (5) DMII (diabetes mellitus, type 2): A1c was 7.1% this admission. Has very high insulin needs. - Glycemic pharmacy consulted given her high needs. - Continue gabapentin (6) COPD (chronic obstructive pulmonary disease): Unknown stage/severity. No present shortness of breath. - Continue home maintenance inhalers (or formulary equivalent) - DuoNebs PRN (7) Tobacco abuse: Still smoking ~5-6 cigarettes per day. - Nicotine patch - Cessation advised (8) DVT prophylaxis: Lovenox 45 mg SQ daily (weight-based dosing) Total Time Total Time Spent Total Time Spent (In Minutes): 35 Discharge Plan Discharge Items Patient Disposition: Home - Home Health Services Reason For Visit: CVA, R CAROTID ARTERY DISSECTION Discharge Diagnosis: Right-sided stroke with right carotid artery dissection Activity: Resume your previous activity Non-emergency contact: Primary Care Provider and Neurologist Call non-emergency contact if: your symptoms worsen Follow-up/Referrals: Jose Alejandro Beckwith MD [Physician] - (Please see Dr. Beckwith in 2-4 weeks.) PCP,NO [Primary Care Provider] - Diet: Heart Healthy, Low Fat and Low Sodium (2gm) Addtl Attending Provider Instructions: Ms. Penn, Angel were admitted to the hospital with left-sided weakness that is the result of a stroke. The stroke was likely caused by a small tear in the blood vessel in your neck called the carotid artery. This tear allowed some blood to clot within the blood vessel and then travel to the brain and cause a small area of the brain to lose blood flow. The brain can compensate for this, and over time, we hope that you will regain most or even all of the function. Please work with physical therapy and occupational therapy at home or at a rehab center to help continue to maximize your strength and function. Because you are on such a good heart regimen, we do not have any medication adjustments for you. Risk Factors for Stroke: You can reduce your chances of stroke by working with your medical provider to adopt a healthy lifestyle. Some specific ways to lower your chance of stroke are: * If you are a smoker, now is the time to stop smoking cigarettes * If you are diabetic, improve the control of your blood sugars * Avoid excessive amounts of alcohol * Control high blood pressure * Lose weight if you are overweight * Be sure to lead an active lifestyle * Eat a healthy diet low in salt, cholesterol and fat You should know about other risk factors for stroke that you are unable to control. These include: * Age 55 years or older * Male gender * Certain racial groups: , or / * Family History of Stroke, Mini stroke or Heart Attack * Sickle Cell Disease Follow Up: It is important for you to keep your follow up appointments with your medical provider. Who to Call and When: Medical Emergencies: Call 911 immediately if you experience any of the following warning signs and symptoms of Stroke: * Sudden numbness or weakness of the face, arm or leg, especially on one side of the body * Sudden confusion, trouble speaking or understanding * Sudden trouble seeing in one or both eyes * Sudden trouble walking, dizziness, loss of balance or coordination * Sudden severe headache with no cause Do not delay calling 911 if you experience any warning signs or symptoms of a stroke. Delay in seeking medical attention may affect what treatments can be given to you. . Pending Studies at Discharge: No Stand-Alone Forms: My [facility], Smoking Cessation Medications and DC Order Prescriptions: Continued metformin 500 mg Tablet 500 mg PO BID RF: 0 fluticasone propion-salmeterol [Advair Diskus] 250-50 mcg/dose Blister With Device 1 inh INHALATION Q12H RF: 0 atorvastatin 80 mg Tablet 80 mg PO HS RF: 0 albuterol sulfate 2.5 mg /3 mL (0.083 %) Solution For Nebulization 2.5 mg INHALATION Q4 PRN (Reason: Shortness Of Breath Or Wheezing) RF: 0 citalopram [Celexa] 40 mg Tablet 40 mg PO BID RF: 0 metoprolol succinate [Toprol XL] 50 mg Tablet Extended Release 24 Hr 50 mg PO DAILY RF: 0 hydrocodone-acetaminophen [Redkey] 5-325 mg Tablet 2 tab PO Q6H PRN (Reason: Pain) RF: 0 clopidogrel [Plavix] 75 mg Tablet 75 mg PO DAILY RF: 0 omeprazole 40 mg Capsule,Delayed Release(Dr/Ec) 40 mg PO DAILY RF: 0 aspirin [Aspir-81] 81 mg Tablet,Delayed Release (Dr/Ec) 81 mg PO DAILY RF: 0 insulin aspart U-100 [Novolog U-100 Insulin aspart] 100 unit/mL Solution 17 unit SUBCUT TIDM RF: 0 trazodone 150 mg Tablet 150 mg PO HS RF: 0 lisinopril 5 mg Tablet 5 mg PO DAILY RF: 0 furosemide [Lasix] 20 mg Tablet 20 mg PO DAILY RF: 0 nystatin [Nystop] 100,000 unit/gram Powder 1 applic TOPICAL BID RF: 0 albuterol sulfate [Ventolin HFA] 90 mcg/actuation Hfa Aerosol Inhaler 2 puff INHALATION Q4 PRN (Reason: Shortness Of Breath Or Wheezing) RF: 0 loratadine [Claritin] 10 mg Tablet 10 mg PO DAILY RF: 0 ezetimibe [Zetia] 10 mg Tablet 10 mg PO DAILY RF: 0 Levemir FlexTouch U-100 Insuln 100 unit/mL (3 mL) Insulin Pen 40 unit SUBCUT QPM RF: 0 Levemir FlexTouch U-100 Insuln 100 unit/mL (3 mL) Insulin Pen 47 unit SUBCUT QAM RF: 0 Trulicity 1.5 mg/0.5 mL Pen Injector 1.5 mg SUBCUT WK RF: 0 Fenofibrate Tab 145 mg PO DAILY RF: 0 Jardiance 10 mg Tablet 10 mg PO DAILY RF: 0 Praluent Pen 75 mg/mL Pen Injector 75 mg SUBCUT .Q14 DAYS RF: 0 vitamin A 10,000 unit Capsule 10,000 unit PO DAILY RF: 0 ascorbic acid (vitamin C) [Vitamin C] 500 mg Tablet 500 mg PO DAILY RF: 0 meclizine 25 mg Tablet 25 mg PO TID PRN (Reason: DIZZY) RF: 0 gabapentin 300 mg Capsule 300 mg PO TID RF: 0 ergocalciferol (vitamin D2) [Vitamin D2] 1,250 mcg (50,000 unit) Capsule 1,250 mcg PO WK RF: 0 bupropion HCl [Wellbutrin XL] 300 mg Tablet Extended Release 24 Hr 300 mg PO QAM RF: 0 cholecalciferol (vitamin D3) [Vitamin D3] 25 mcg (1,000 unit) Tablet 1,000 unit PO DAILY RF: 0 magnesium oxide 400 mg magnesium Tablet 400 mg PO DAILY RF: 0 Spiriva with HandiHaler 18 mcg Capsule, W/Inhalation Device 1 cap INHALATION DAILY RF: 0 bupropion HCl [Wellbutrin XL] 150 mg Tablet Extended Release 24 Hr 150 mg PO DAILY RF: 0 Discharge Orders: Discharge Order (Routine); Ordered 09/29/20 Ordered By: Ortiz Bowens/Other Patient Handouts: Managing Type 2 Diabetes, Managing Diabetes: The A1C Test Admission Data Admit Date/Time: 09/27/20 09:27 Attending Provider: Ortiz Samule Admit Provider: Ortiz Samuel Primary Care Provider: PCP,NO Other Providers: Ortiz Samuel ; Jose Alejandro Beckwith ; [facility] Other Interventions: Discharge Summary Assessment (RN) Last Done: 09/29/20 15:26 Coding Level of Care Code D/C Day Management >30 mins Diagnoses CVA (cerebral vascular accident) I63.9 CVA mechanism: unspecified CAD (coronary artery disease) I25.10 Chronic diastolic heart failure I50.32 PVD (peripheral vascular disease) I73.9 DMII (diabetes mellitus, type 2) E11.9 COPD (chronic obstructive pulmonary disease) J44.9 Tobacco abuse Z72.0 DVT prophylaxis Z29.9
== END 2020-09-29 18:14 | disposition home health service (06) | DRG 64 ==
LOC: ED 07:06 → 2N 09:27